=== PATIENT | male | born 1950 | race Caucasian/White ===

== ENCOUNTER 2017-06-17 10:01 | Day surgery (SDC) | payer MEDICARE, OTHER ==
--- NOTE | 2017-06-17 07:32 | PCM.PREANE ---
Preanesthetic Assessment - Anesthesia/Transfusion/Family Hx Anesthesia History: Prior Anesthesia Without Reaction Family History of Anesthesia Reaction: No Transfusion History: No Prior Transfusion(s) - Review of Systems General: No Symptoms Pulmonary: Shortness of Breath (unchanged. there for years) Cardiovascular: No Symptoms Gastrointestinal: No Symptoms Neurological: No Symptoms, Other (stroke maybe a year ago-) Other: Reports: None - Physical Assessment NPO Status Date: 06/16/17 NPO Status Time: 22:15 Pulse: 57 O2 Sat by Pulse Oximetry: 100 Respiratory Rate: 16 Blood Pressure: 159/67 Temperature: 97.2 F Height: 6 ft Weight: 94.347 kg ASA Class: 3 Mental Status: Alert & Oriented x3 Airway Class: Mallampati = 1 Dentition: Reports: Dentures (top) Thyro-Mental Finger Breadths: 3 Mouth Opening Finger Breadths: 3 ROM/Head Extension: Full Lungs: Clear to Auscultation, Normal Respiratory Effort Cardiovascular: Regular Rate, Regular Rhythm - Allergies Allergies/Adverse Reactions: Allergies Allergy/AdvReac Type Severity Reaction Status Date / Time beta blockers AdvReac Syncope Uncoded 06/16/17 16:02 - Blood Blood Available: No - Anesthesia Plan Beta Leonard: Metoprolol Med Last Dose Date: 06/17/17 Med Last Dose Time: 05:15 - Acknowledgements Anesthesia Type Planned: MAC Pt an Appropriate Candidate for the Planned Anesthesia: Yes Alternatives and Risks of Anesthesia Discussed w Pt/Guardian: Yes Pt/Guardian Understands and Agrees with Anesthesia Plan: Yes PreAnesthesia Questionnaire HEENT History: Reports: Allergic Rhinitis, Impaired Vision Other HEENT History: wears glasses Cardiovascular History: Reports: CAD, High Cholesterol, Hypertension, [place], Stents Other Cardiovascular History: bypass x3 March 2009 Respiratory History: Reports: SOB Gastrointestinal History: Reports: Cholelithiasis, GERD Genitourinary History: Reports: None VAT PACKER History: Reports: None Musculoskeletal History: Reports: Other (See Below) Other Musculoskeletal History: chronic joint pain Neurological History: Reports: Seizure, Other (See Below) Other Neuro History: epilepsy, black out episodes from [id number] diagnosed as petit mal seizures Psychiatric History: Reports: None, Anxiety Endocrine/Metabolic History: Reports: Hypothyroidism, Osteoporosis Hematologic History: Reports: None, Other (See Below) Other Hematologic History: jaundice history-resolved Immunologic History: Reports: None Oncologic (Cancer) History: Reports: None Dermatologic History: Reports: Other (See Below) Other Dermatologic History: cyst on face - Past Surgical History Head Surgeries/Procedures: Reports: None HEENT Surgical History: Reports: None Cardiovascular Surgical History: Reports: Coronary Artery Bypass Other Cardiovascular Surgeries/Procedures: triple CABG in 2008 GI Surgical History: Reports: None, Cholecystectomy Female Surgical History: Reports: None Male Surgical History: Reports: None Neurological Surgical History: Reports: None Musculoskeletal Surgical History: Reports: None - SUBSTANCE USE Smoking Status *Q: Never Smoker Second Hand Smoke Exposure: No Days Per Week of Alcohol Use: 0 Number of Drinks Per Day: 0 Total Drinks Per Week: 0 Recreational Drug Use History: No - HOME MEDS Home Medications: Home Meds Clopidogrel [Plavix] 75 mg PO Q48H 05/07/16 [History] Diltiazem [Cardizem CD] 240 mg PO BEDTIME 05/07/16 [History] Enalapril Maleate 10 mg PO BID 05/07/16 [History] Multivitamin [Multivitamins] 1 tab PO DAILY 05/07/16 [History] Nitroglycerin [Nitrostat] 0.4 mg SL ASDIRECTED PRN 05/07/16 [History] Pantoprazole [ProTONIX] 40 mg PO DAILY 05/07/16 [History] atorvaSTATin [Lipitor] 80 mg PO DAILY 05/07/16 [History] Ascorbic Acid [Vitamin C] 1,000 mg PO DAILY 06/16/17 [History] Isosorbide Mononitrate [Imdur] 30 mg PO DAILY 06/16/17 [History] Ubidecarenone [Coq-10] 100 mg PO DAILY 06/16/17 [History] lamoTRIgine [Lamotrigine] 100 mg PO BID 06/16/17 [History] - CURRENT (IN HOUSE) MEDS Current Meds: Current Medications Lactated Ringer's (Ringers, Lactated) 1,000 mls @ 125 mls/hr IV ASDIRECTED CHEIRE Stop: 06/17/17 23:00 Lidocaine/Sodium Bicarbonate (Buffered Lidocaine 1% In Ns 8.4%) 0.25 ml .XX ONETIME PRN PRN Reason: Prior to IV Start Stop: 06/17/17 18:00 Sodium Chloride (Saline Flush) 10 ml FLUSH ASDIRECTED PRN PRN Reason: Keep Vein Open Stop: 06/17/17 18:00
[~2017-06-17 10:01] MED LIST: Lactated Ringers 1,000 ML IV SCH; Lidocaine 1%/Sod Bicarbonate in NS 8.4% 1 ML Syringe PRN; Sodium Chloride 0.9% 10 ML Syringe FLUSH PRN
--- NOTE | 2017-06-17 11:08 | PCM.PREANE ---
Preanesthetic Assessment - Anesthesia/Transfusion/Family Hx Anesthesia History: Prior Anesthesia Without Reaction Family History of Anesthesia Reaction: No Transfusion History: No Prior Transfusion(s) - Review of Systems General: No Symptoms Pulmonary: No Symptoms Cardiovascular: No Symptoms Gastrointestinal: No Symptoms Neurological: Seizure (jan 12, 2017 last one) Other: Reports: Easy Bruising - Physical Assessment NPO Status Date: 06/16/17 NPO Status Time: 19:45 O2 Sat by Pulse Oximetry: 98 Respiratory Rate: 16 Vital Signs: Last Vital Signs Temp 97.5 F 06/17/17 10:15 Pulse 71 06/17/17 10:15 Resp 16 06/17/17 10:15 BP 151/65 H 06/17/17 10:15 Pulse Ox 98 06/17/17 10:15 Height: 6 ft Weight: 90.718 kg ASA Class: 3 Mental Status: Alert & Oriented x3 Airway Class: Mallampati = 1 Dentition: Reports: Normal Dentition, Broken Tooth/Teeth, Caries Thyro-Mental Finger Breadths: 3 Mouth Opening Finger Breadths: 3 ROM/Head Extension: Full Lungs: Clear to Auscultation, Normal Respiratory Effort Cardiovascular: Regular Rate, Regular Rhythm - Allergies Allergies/Adverse Reactions: Allergies Allergy/AdvReac Type Severity Reaction Status Date / Time beta blockers AdvReac Syncope Uncoded 06/16/17 16:02 - Blood Blood Available: No - Acknowledgements Anesthesia Type Planned: MAC Pt an Appropriate Candidate for the Planned Anesthesia: Yes Alternatives and Risks of Anesthesia Discussed w Pt/Guardian: Yes Pt/Guardian Understands and Agrees with Anesthesia Plan: Yes PreAnesthesia Questionnaire HEENT History: Reports: Allergic Rhinitis, Impaired Vision Other HEENT History: wears glasses Cardiovascular History: Reports: Bypass, CAD, High Cholesterol, Hypertension, [place] , Other (See Below) (gets chesst pain if he exerts himself after he eats) Other Cardiovascular History: bypass x3 March 2009 Respiratory History: Reports: SOB Gastrointestinal History: Reports: Cholelithiasis, GERD Genitourinary History: Reports: None LEATHER STITCHER History: Reports: None Musculoskeletal History: Reports: Other (See Below) Other Musculoskeletal History: chronic joint pain Neurological History: Reports: Seizure, Other (See Below) Other Neuro History: epilepsy, black out episodes from [id number] diagnosed as petit mal seizures Psychiatric History: Reports: None, Anxiety Endocrine/Metabolic History: Reports: Hypothyroidism, Osteoporosis Hematologic History: Reports: None, Other (See Below) Other Hematologic History: jaundice history-resolved Immunologic History: Reports: None Oncologic (Cancer) History: Reports: None Dermatologic History: Reports: Other (See Below) Other Dermatologic History: cyst on face - Past Surgical History Head Surgeries/Procedures: Reports: None HEENT Surgical History: Reports: None Cardiovascular Surgical History: Reports: Coronary Artery Bypass Other Cardiovascular Surgeries/Procedures: triple CABG in 2008 GI Surgical History: Reports: None, Cholecystectomy Female Surgical History: Reports: None Male Surgical History: Reports: None Neurological Surgical History: Reports: None Musculoskeletal Surgical History: Reports: None - SUBSTANCE USE Smoking Status *Q: Former Smoker (quit 1979) Tobacco Use Within Last Twelve Months: No Second Hand Smoke Exposure: No Days Per Week of Alcohol Use: 0 Number of Drinks Per Day: 0 Total Drinks Per Week: 0 Recreational Drug Use History: No - HOME MEDS Home Medications: Home Meds Clopidogrel [Plavix] 75 mg PO Q48H 05/07/16 [History] Diltiazem [Cardizem CD] 240 mg PO BEDTIME 05/07/16 [History] Enalapril Maleate 10 mg PO BID 05/07/16 [History] Multivitamin [Multivitamins] 1 tab PO DAILY 05/07/16 [History] Nitroglycerin [Nitrostat] 0.4 mg SL ASDIRECTED PRN 05/07/16 [History] Pantoprazole [ProTONIX] 40 mg PO DAILY 05/07/16 [History] atorvaSTATin [Lipitor] 80 mg PO DAILY 05/07/16 [History] Ascorbic Acid [Vitamin C] 1,000 mg PO DAILY 06/16/17 [History] Isosorbide Mononitrate [Imdur] 30 mg PO DAILY 06/16/17 [History] Ubidecarenone [Coq-10] 100 mg PO DAILY 06/16/17 [History] lamoTRIgine [Lamotrigine] 100 mg PO BID 06/16/17 [History] - CURRENT (IN HOUSE) MEDS Current Meds: Current Medications Lactated Ringer's (Ringers, Lactated) 1,000 mls @ 125 mls/hr IV ASDIRECTED CHERIE Stop: 06/17/17 23:00 Last Admin: 06/17/17 10:38 Dose: 125 mls/hr Lidocaine/Sodium Bicarbonate (Buffered Lidocaine 1% In Ns 8.4%) 0.25 ml .XX ONETIME PRN PRN Reason: Prior to IV Start Stop: 06/17/17 18:00 Last Admin: 06/17/17 10:38 Dose: 0.25 ml Sodium Chloride (Saline Flush) 10 ml FLUSH ASDIRECTED PRN PRN Reason: Keep Vein Open Stop: 06/17/17 18:00 Discontinued Medications Fentanyl (Sublimaze) Confirm Administered Dose 100 mcg .ROUTE .STK-MED ONE Stop: 06/17/17 11:17 Lidocaine HCl (Xylocaine-Mpf 1%) Confirm Administered Dose 4 mls @ as directed .ROUTE .STK-MED ONE Stop: 06/17/17 11:17 Propofol (Diprivan 20 Ml) Confirm Administered Dose 200 mg .ROUTE .STK-MED ONE Stop: 06/17/17 11:17
[2017-06-17] MEDS ORDERED: Lidocaine 1% 4 ML ONE (11:16)
[2017-06-17] MEDS ORDERED: Propofol 200 MG/20 ML SDV ONE (11:16)
[2017-06-17] MEDS ORDERED: fentaNYL 100 MCG/2 ML SDV ONE (11:16)
[2017-06-17] MEDS ORDERED: Simethicone Drops 40 MG/0.6 ML 30 ML Bottle ONE (11:20)
--- NOTE | 2017-06-17 11:48 | PCM.OPNOTE ---
- General Post-Op/Procedure Note Date of Surgery/Procedure: 06/17/17 Operative Procedure(s): colonoscopy to cecum Pre Op Diagnosis: occult positive stools Post-Op Diagnosis: Same Anesthesia Technique: MAC Primary Surgeon: Jason Hough EBL in mLs: 0 Complications: None Condition: Good
--- NOTE | 2017-06-17 11:51 | PCM48HPAN ---
Post Anesthesia Note - EVALUATION WITHIN 48HRS OF ANESTHETIC Vital Signs in Normal Range: Yes Patient Participated in Evaluation: Yes Respiratory Function Stable: Yes Airway Patent: Yes Cardiovascular Function Stable: Yes Hydration Status Stable: Yes Pain Control Satisfactory: Yes Nausea and Vomiting Control Satisfactory: Yes Mental Status Recovered: Yes
[2017-06-17 11:54] VITALS: BP 171/75
--- NOTE | 2017-06-18 07:31 | OR ---
DATE OF OPERATION: 06/17/2017 SURGEON: Jason Hough MD PREOPERATIVE DIAGNOSIS: Occult-positive stools. POSTOPERATIVE DIAGNOSIS: Occult-positive stools. OPERATION PERFORMED: Colonoscopy to cecum. FINDINGS: Occasional diverticulum, descending and sigmoid colon; internal hemorrhoids are the likely source of his positive stools. There is no angiodysplasias, neoplasias, large tumor masses, or ulcerations. DESCRIPTION OF PROCEDURE: The patient was taken to the endoscopy room, connected to monitoring equipment, given IV sedation, and placed in left lateral position. The perianal area was inspected and was normal. Rectal exam showed good sphincter tone. A video Olympus colonoscope was introduced into the rectum and threaded up without problem to the cecum, where the appendicular orifice and ileocecal valve were noted. Prep was excellent throughout the colon. [place]are[place] cleansing score grade A, and the scope was slowly withdrawn showing the cecum, ascending colon, transverse colon, descending colon, sigmoid colon, and rectum. Retroflexed view was done. Findings were as noted above. The patient tolerated the procedure and will be followed up as needed in the clinic. ANESTHESIA: ESTIMATED BLOOD LOSS: MMODAL /[id number]
== END 2017-06-17 12:30 | disposition home health service (06) ==
LOC: JD.SDS 10:01
PROVIDERS: ATTEND Surgery
DX: K57.30 Diverticulosis of large intestine without perforation or abscess without bleeding (principal); K64.8 Other hemorrhoids; I25.10 Atherosclerotic heart disease of native coronary artery without angina pectoris; I10 Essential (primary) hypertension; E03.9 Hypothyroidism, unspecified; Z95.1 Presence of aortocoronary bypass graft; Z90.49 Acquired absence of other specified parts of digestive tract; Z98.890 Other specified postprocedural states; E78.00 Pure hypercholesterolemia, unspecified; Z79.899 Other long term (current) drug therapy; Z88.8 Allergy status to other drugs, medicaments and biological substances; Z87.891 Personal history of nicotine dependence
CPT/HCPCS: 45378; A9270; J3010; J7120; 00810; J2704

== ENCOUNTER → 2019-10-17 | Day surgery (SDC) | payer MEDICARE, OTHER ==
[~2019-10-17] MED LIST changes: +Lidocaine 1% 4 ML ONE; +Lidocaine 1%/Sod Bicarbonate in NS 8.4% 1 ML Syringe IDERM PRN; -Lidocaine 1%/Sod Bicarbonate in NS 8.4% 1 ML Syringe PRN; +Propofol 200 MG/20 ML SDV ONE; +fentaNYL 100 MCG/2 ML SDV ONE
--- NOTE | 2019-10-17 08:00 | PCM.PREANE ---
Preanesthetic Assessment - Anesthesia/Transfusion/Family Hx Anesthesia History: Prior Anesthesia Without Reaction Family History of Anesthesia Reaction: No Transfusion History: No Prior Transfusion(s) - Review of Systems General: No Symptoms Pulmonary: Shortness of Breath (Associated with eating. ) Cardiovascular: No Symptoms Gastrointestinal: No Symptoms Neurological: Seizure (Has not had a seizure since 2015. ) Other: Reports: Easy Bleeding, Easy Bruising (Anticoagulated. Plavix last dose 10/11/2019.) - Physical Assessment NPO Status Date: 10/16/19 NPO Status Time: 20:30 Vital Signs: Last Vital Signs Temp 36.6 C 10/17/19 07:15 Pulse 77 10/17/19 07:15 Resp 18 10/17/19 07:15 BP 152/79 H 10/17/19 07:24 Pulse Ox 93 L 10/17/19 07:15 Height: 1.83 m Weight: 90.265 kg ASA Class: 3 Mental Status: Alert & Oriented x3 Airway Class: Mallampati = 2 Dentition: Reports: Normal Dentition Thyro-Mental Finger Breadths: 3 Mouth Opening Finger Breadths: 3 ROM/Head Extension: Full Lungs: Clear to Auscultation, Normal Respiratory Effort Cardiovascular: Regular Rate, Regular Rhythm - Allergies Allergies/Adverse Reactions: Allergies Allergy/AdvReac Type Severity Reaction Status Date / Time Alpha 2 Adrenergic Agonist Allergy Dizziness Verified 10/17/19 07:50 beta blockers AdvReac Syncope Uncoded 10/16/19 15:48 - Acknowledgements Anesthesia Type Planned: MAC Pt an Appropriate Candidate for the Planned Anesthesia: Yes Alternatives and Risks of Anesthesia Discussed w Pt/Guardian: Yes Pt/Guardian Understands and Agrees with Anesthesia Plan: Yes PreAnesthesia Questionnaire HEENT History: Reports: Allergic Rhinitis, Hard of Hearing, Impaired Vision Other HEENT History: wears glasses Cardiovascular History: Reports: Bypass, CAD, High Cholesterol, Hypertension, [place] , Other (See Below) Other Cardiovascular History: bypass x3 March 2009, carotid atherosclerosis, angina, chest pain Respiratory History: Reports: SOB Gastrointestinal History: Reports: Cholelithiasis, GERD, Other (See Below) Other Gastrointestinal History: gastritis, duodenitis, abdominal pain Genitourinary History: Reports: None SILVERLIGHT DEVELOPER History: Reports: None Musculoskeletal History: Reports: Other (See Below) Other Musculoskeletal History: chronic joint pain Neurological History: Reports: Seizure, Other (See Below) Other Neuro History: epilepsy, black out episodes from [id number] diagnosed as petit mal seizures Psychiatric History: Reports: None, Anxiety Endocrine/Metabolic History: Reports: Hypothyroidism, Osteoporosis Hematologic History: Reports: None, Other (See Below) Other Hematologic History: jaundice history-resolved Immunologic History: Reports: None Oncologic (Cancer) History: Reports: None Dermatologic History: Reports: Other (See Below) Other Dermatologic History: cyst on face - Past Surgical History Head Surgeries/Procedures: Reports: None HEENT Surgical History: Reports: None Cardiovascular Surgical History: Reports: Coronary Artery Bypass Other Cardiovascular Surgeries/Procedures: triple CABG in 2008 Respiratory Surgical History: Reports: None GI Surgical History: Reports: None, Cholecystectomy, Colonoscopy Female Surgical History: Reports: None Male Surgical History: Reports: None Endocrine Surgical History: Reports: None Neurological Surgical History: Reports: None Musculoskeletal Surgical History: Reports: None Oncologic Surgical History: Reports: None Dermatological Surgical History: Reports: None - SUBSTANCE USE Smoking Status *Q: Never Smoker Recreational Drug Use History: No - HOME MEDS Home Medications: Home Meds Clopidogrel [Plavix] 75 mg PO DAILY 05/07/16 [History] Diltiazem [Cardizem CD] 240 mg PO BEDTIME 05/07/16 [History] Enalapril Maleate 10 mg PO BID 05/07/16 [History] Multivitamin [Multivitamins] 1 tab PO DAILY 05/07/16 [History] Nitroglycerin [Nitrostat] 0.4 mg SL ASDIRECTED PRN 05/07/16 [History] atorvaSTATin [Lipitor] 80 mg PO DAILY 05/07/16 [History] Isosorbide Mononitrate [Imdur] 30 mg PO BID 06/16/17 [History] Ubidecarenone [Coq-10] 100 mg PO DAILY 06/16/17 [History] Aspirin [Halfprin] 81 mg PO DAILY 10/16/19 [History] Dutasteride 0.5 mg PO DAILY 10/16/19 [History] Polyethylene Glycol 3350 [MiraLAX] 1 dose PO DAILY PRN 10/16/19 [History] lamoTRIgine 200 mg PO Q12H 10/16/19 [History] - CURRENT (IN HOUSE) MEDS Current Meds: Current Medications Lactated Ringer's (Ringers, Lactated) 1,000 mls @ 125 mls/hr IV ASDIRECTED CHERIE Stop: 10/17/19 23:00 Lidocaine/Sodium Bicarbonate (Buffered Lidocaine 1% In Ns 8.4%) 0.25 ml IDERM ONETIME PRN PRN Reason: Prior to IV Start Stop: 10/17/19 18:00 Sodium Chloride (Saline Flush) 10 ml FLUSH ASDIRECTED PRN PRN Reason: Keep Vein Open Stop: 10/17/19 18:00 Discontinued Medications Fentanyl (Sublimaze) Confirm Administered Dose 100 mcg .ROUTE .STK-MED ONE Stop: 10/17/19 07:29 Lidocaine HCl (Xylocaine-Mpf 1%) Confirm Administered Dose 4 mls @ as directed .ROUTE .STK-MED ONE Stop: 10/17/19 07:30 Propofol (Diprivan 20 Ml) Confirm Administered Dose 400 mg .ROUTE .STK-MED ONE Stop: 10/17/19 07:29
--- NOTE | 2019-10-17 09:05 | PCM.OPNOTE ---
- General Post-Op/Procedure Note Date of Surgery/Procedure: 10/17/19 Operative Procedure(s): colonosocopy to cecum with polypectomy Pre Op Diagnosis: change in bowel habits Post-Op Diagnosis: Same Anesthesia Technique: MAC Primary Surgeon: Jason Hough EBL in mLs: 0 Complications: None Condition: Good
--- NOTE | 2019-10-17 09:15 | PCM48HPAN ---
Post Anesthesia Note - EVALUATION WITHIN 48HRS OF ANESTHETIC Vital Signs in Normal Range: Yes Patient Participated in Evaluation: Yes Respiratory Function Stable: Yes Airway Patent: Yes Cardiovascular Function Stable: Yes Hydration Status Stable: Yes Pain Control Satisfactory: Yes Nausea and Vomiting Control Satisfactory: Yes Mental Status Recovered: Yes Vital Signs: Last Vital Signs 0901 111/64 63 14 93% 97.3
[2019-10-17 10:54] VITALS: BP 132/75; PULSE 78
--- NOTE | 2019-10-17 14:11 | OR ---
DATE OF OPERATION: 10/17/2019 SURGEON: Jason Hough MD PREOPERATIVE DIAGNOSIS: Change in bowel habits. POSTOPERATIVE DIAGNOSIS: Change in bowel habits. OPERATION PERFORMED: Colonoscopy to cecum. FINDINGS: Scattered diverticulum in the sigmoid colon. One diminutive polyp at 30 cm which was removed completely by cold biopsy forceps. There was no angiodysplasias, large tumor masses, ulcerations, or notable hemorrhoids. ANESTHESIA: Procedure done under IV sedation. DESCRIPTION OF PROCEDURE: The patient was taken to the operating room, placed in a supine position, connected to monitoring equipment, given IV sedation. The patient was placed in left lateral position. Perianal area inspected, was normal. Rectal exam showed good sphincter tone. Video Olympus colonoscope was then introduced into the rectum and threaded up without problem to the cecum, where the ileocecal valve and appendicular orifice were reviewed. Prep was excellent. [place]arefield cleansing score grade A, and the scope was slowly withdrawn showing the cecum, ascending colon, transverse colon, descending colon, sigmoid colon, and rectum. Retroflexed view was done. Small diminutive polyp was noted at 30 cm, identified and removed with 2 bites of cold biopsy forceps and sent to pathology. The patient tolerated the procedures. Specimen sent to pathology in a labeled container. The patient's relatives informed of the results of the tests and we will recommend high-fiber diet and follow up with Dr. Zheng. ESTIMATED BLOOD LOSS: MMODAL /[id number]
== END | disposition home or self-care (01) ==
LOC: JD.SDS 06:39
PROVIDERS: ATTEND Surgery
DX: D12.5 Benign neoplasm of sigmoid colon (principal); K57.30 Diverticulosis of large intestine without perforation or abscess without bleeding; N40.1 Benign prostatic hyperplasia with lower urinary tract symptoms; N39.43 Post-void dribbling; I10 Essential (primary) hypertension; G40.009 Localization-related (focal) (partial) idiopathic epilepsy and epileptic syndromes with seizures of localized onset, not intractable, without status epilepticus; E78.2 Mixed hyperlipidemia; I25.10 Atherosclerotic heart disease of native coronary artery without angina pectoris; Z79.899 Other long term (current) drug therapy; Z79.02 Long term (current) use of antithrombotics/antiplatelets; Z79.82 Long term (current) use of aspirin; Z88.8 Allergy status to other drugs, medicaments and biological substances; Z95.1 Presence of aortocoronary bypass graft
CPT/HCPCS: 45380; J2001; J2704; J3010; J7120

== ENCOUNTER 2020-02-23 09:27 | Inpatient (IN) | payer MEDICARE, OTHER ==
[2020-02-23] MEDS ORDERED: Sodium Chloride 0.9% 10 ML Syringe FLUSH PRN (10:03)
[2020-02-23] MEDS ORDERED: Codeine/Promethazine 10-6.25 MG/5 ML Syrup 5 ML UD Cup PO ONE ×2 (10:05→14:16)
--- NOTE | 2020-02-23 10:48 | EDM.PDOC ---
ED HPI GENERAL MEDICAL PROBLEM - General Chief Complaint: Respiratory Problem Stated Complaint: COVID + Time Seen by Provider: 02/23/20 09:38 Source of Information: Reports: Patient, Provider History Limitations: Reports: No Limitations - History of Present Illness INITIAL COMMENTS - FREE TEXT/NARRATIVE: The patient presents with a cough and shortness of breath and he is COVID 19 positive. He says he started having symptoms about 5 days ago with a cough and shortness of breath. He went to the walk in clinic at [place] and he was tested for COVID 19. He was called today that he was positive. He told the provider that he was feeling worse with a worsening cough and shortness of breath. He was told to come in and be evaluated. He denies chest pain and fever. He has no abdominal pain, nausea or vomiting. He did have some diarrhea days ago. He has a history of CABG and CAD. He has no history of asthma or COPD. He does not smoke. Onset: Gradual Duration: Day(s): Improves with: Reports: None Worsens with: Reports: None Associated Symptoms: Reports: Cough, Shortness of Breath. Denies: Chest Pain, Fever/Chills, Headaches, Nausea/Vomiting Chest Pain Score (Numeric/FACES): 9 - Related Data Allergies Allergy/AdvReac Type Severity Reaction Status Date / Time Alpha 2 Adrenergic Agonist Allergy Dizziness Verified 02/23/20 09:38 beta blockers AdvReac Syncope Uncoded 02/23/20 09:38 Home Meds: Home Meds Clopidogrel [Plavix] 75 mg PO DAILY 05/07/16 [History] Diltiazem [Cardizem CD] 240 mg PO BEDTIME 05/07/16 [History] Enalapril Maleate 10 mg PO BID 05/07/16 [History] Multivitamin [Multivitamins] 1 tab PO DAILY 05/07/16 [History] Nitroglycerin [Nitrostat] 0.4 mg SL ASDIRECTED PRN 05/07/16 [History] atorvaSTATin [Lipitor] 80 mg PO DAILY 05/07/16 [History] Isosorbide Mononitrate [Imdur] 30 mg PO BID 06/16/17 [History] Ubidecarenone [Coq-10] 100 mg PO DAILY 06/16/17 [History] Aspirin [Halfprin] 81 mg PO DAILY 10/16/19 [History] Dutasteride 0.5 mg PO DAILY 10/16/19 [History] lamoTRIgine 250 mg PO Q12H 10/16/19 [History] polyethylene glycoL 3350 [MiraLAX] 1 dose PO DAILY PRN 10/16/19 [History] Amoxicillin/Clavulanate K [Augmentin 875-125 MG] 1 tab PO TID 02/23/20 [History] Azithromycin 250 mg PO DAILY 02/23/20 [History] Benzonatate [Tessalon Perle] 200 mg PO TID 02/23/20 [History] Docusate Sodium 100 mg PO ASDIRECTED 02/23/20 [History] levETIRAcetam [Keppra] 500 mg PO BID 02/23/20 [History] Past Medical History HEENT History: Reports: Allergic Rhinitis, Hard of Hearing, Impaired Vision Other HEENT History: wears glasses Cardiovascular History: Reports: Bypass, CAD, High Cholesterol, Hypertension, [place] , Other (See Below) Other Cardiovascular History: bypass x3 March 2009, carotid atherosclerosis, angina, chest pain Respiratory History: Reports: SOB Gastrointestinal History: Reports: Cholelithiasis, GERD, Other (See Below) Other Gastrointestinal History: gastritis, duodenitis, abdominal pain Genitourinary History: Reports: None JACKER FEEDER History: Reports: None Musculoskeletal History: Reports: Other (See Below) Other Musculoskeletal History: chronic joint pain Neurological History: Reports: Seizure, Other (See Below) Other Neuro History: epilepsy, 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 Psychiatric History: Reports: None, Anxiety Endocrine/Metabolic History: Reports: Hypothyroidism, Osteoporosis Hematologic History: Reports: None, Other (See Below) Other Hematologic History: jaundice history-resolved Immunologic History: Reports: None Oncologic (Cancer) History: Reports: None Dermatologic History: Reports: Other (See Below) Other Dermatologic History: cyst on face - Past Surgical History Head Surgeries/Procedures: Reports: None HEENT Surgical History: Reports: None Cardiovascular Surgical History: Reports: Coronary Artery Bypass Other Cardiovascular Surgeries/Procedures: triple CABG in 2008 Respiratory Surgical History: Reports: None GI Surgical History: Reports: None, Cholecystectomy, Colonoscopy Male Surgical History: Reports: None Endocrine Surgical History: Reports: None Neurological Surgical History: Reports: None Musculoskeletal Surgical History: Reports: None Oncologic Surgical History: Reports: None Dermatological Surgical History: Reports: None Social & Family History - Family History Family Medical History: Noncontributory - Tobacco Use Smoking Status *Q: Never Smoker Second Hand Smoke Exposure: No - Caffeine Use Caffeine Use: Reports: None - Recreational Drug Use Recreational Drug Use: No - Living Situation & Occupation Living situation: Reports: Occupation: Employed ED ROS GENERAL - Review of Systems Review Of Systems: See Below Constitutional: Reports: No Symptoms HEENT: Reports: No Symptoms Respiratory: Reports: Shortness of Breath, Cough Cardiovascular: Reports: No Symptoms Endocrine: Reports: No Symptoms GI/Abdominal: Reports: No Symptoms : Reports: No Symptoms Musculoskeletal: Reports: No Symptoms ED EXAM, GENERAL - Physical Exam Exam: See Below Exam Limited By: No Limitations General Appearance: Alert, No Apparent Distress Ears: Normal External Exam Nose: Normal Inspection Head: Atraumatic, Normocephalic Neck: Normal Inspection Respiratory/Chest: Decreased Breath Sounds, Rhonchi (Bases) Cardiovascular: Regular Rate, Rhythm, No Edema, No Murmur GI/Abdominal: Soft, Non-Tender, No Organomegaly, No Mass Back Exam: Normal Inspection Extremities: Normal Inspection Course - Vital Signs Last Recorded V/S: Last Vital Signs Temp 97.9 F 02/23/20 09:34 Pulse 90 02/23/20 09:34 Resp 23 H 02/23/20 09:34 BP 134/75 02/23/20 09:34 Pulse Ox 95 02/23/20 10:15 - Orders/Labs/Meds Orders: Active Orders 24 hr Category Date Time Status Cardiac Monitoring [RC] . DIRECTED Care 02/23/20 10:03 Active EKG Documentation Completion [RC] ASDIRECTED Care 02/23/20 13:05 Active Oxygen Therapy [RC] PRN Care 02/23/20 10:03 Active Peripheral IV Care [RC] . DIRECTED Care 02/23/20 10:04 Active PROCALCITONIN [REF] Stat Lab 02/23/20 10:35 Received Sodium Chloride 0.9% [Saline Flush] Med 02/23/20 10:03 Active 10 ml FLUSH ASDIRECTED PRN Peripheral IV Insertion Adult [OM.PC] Stat Oth 02/23/20 10:03 Ordered EKG 12 Lead [EK] Stat Ther 02/23/20 13:04 Ordered Medication Orders Sodium Chloride (Saline Flush) 10 ml FLUSH ASDIRECTED PRN PRN Reason: Keep Vein Open Last Admin: 02/23/20 10:41 Dose: 10 ml Labs: Laboratory Tests 02/23/20 02/23/20 02/23/20 Range/Units 10:35 10:35 10:35 WBC 5.96 (4.23-9.07) K/mm3 RBC 4.55 L (4.63-6.08) M/mm3 Hgb 13.4 L (13.7-17.5) gm/dl Hct 39.5 L (40.1-51.0) % MCV 86.8 D (79.0-92.2) fl MCH 29.5 (25.7-32.2) pg MCHC 33.9 (32.2-35.5) g/dl RDW Std Deviation 40.8 (35.1-43.9) fL Plt Count 291 (163-337) K/mm3 MPV 9.9 (9.4-12.3) fl Neut % (Auto) 74.5 H (34.0-67.9) % Lymph % (Auto) 13.6 L (21.8-53.1) % [place] % (Auto) 11.4 (5.3-12.2) % Eos % (Auto) 0 L (0.8-7.0) Baso % (Auto) 0.2 (0.1-1.2) % Neut # (Auto) 4.44 (1.78-5.38) K/mm3 Lymph # (Auto) 0.81 L (1.32-3.57) K/mm3 [place] # (Auto) 0.68 (0.30-0.82) K/mm3 Eos # (Auto) 0.00 L (0.04-0.54) K/mm3 Baso # (Auto) 0.01 (0.01-0.08) K/mm3 Sodium 136 (136-145) mEq/L Potassium 3.6 (3.5-5.1) mEq/L Chloride 100 (98-107) mEq/L Carbon Dioxide 25 (21-32) mEq/L Anion Gap 14.6 (5-15) BUN 14 (7-18) mg/dL Creatinine 0.9 (0.7-1.3) mg/dL Est Cr Clr Drug Dosing 86.22 mL/min Estimated GFR (MDRD) > 60 (>60) mL/min BUN/Creatinine Ratio 15.6 (14-18) Glucose 117 H (80-115) mg/dL Calcium 8.8 (8.5-10.1) mg/dL Ferritin 1391 H (26-388) ng/ml Total Bilirubin 1.1 H (0.2-1.0) mg/dL AST 28 (15-37) U/L ALT 37 (16-63) U/L Alkaline Phosphatase 81 (46-116) U/L Lactate Dehydrogenase 203 (85-227) U/L Troponin I (0.00-0.056) ng/mL C-Reactive Protein 8.4 H* (<1.0) mg/dL NT-Pro-B Natriuret Pep (0-125) pg/mL Total Protein 7.1 (6.4-8.2) g/dl Albumin 3.3 L (3.4-5.0) g/dl Globulin 3.8 gm/dL Albumin/Globulin Ratio 0.9 L (1-2) 02/23/20 02/23/20 Range/Units 10:35 10:35 WBC (4.23-9.07) K/mm3 RBC (4.63-6.08) M/mm3 Hgb (13.7-17.5) gm/dl Hct (40.1-51.0) % MCV (79.0-92.2) fl MCH (25.7-32.2) pg MCHC (32.2-35.5) g/dl RDW Std Deviation (35.1-43.9) fL Plt Count (163-337) K/mm3 MPV (9.4-12.3) fl Neut % (Auto) (34.0-67.9) % Lymph % (Auto) (21.8-53.1) % [place] % (Auto) (5.3-12.2) % Eos % (Auto) (0.8-7.0) Baso % (Auto) (0.1-1.2) % Neut # (Auto) (1.78-5.38) K/mm3 Lymph # (Auto) (1.32-3.57) K/mm3 [place] # (Auto) (0.30-0.82) K/mm3 Eos # (Auto) (0.04-0.54) K/mm3 Baso # (Auto) (0.01-0.08) K/mm3 Sodium (136-145) mEq/L Potassium (3.5-5.1) mEq/L Chloride (98-107) mEq/L Carbon Dioxide (21-32) mEq/L Anion Gap (5-15) BUN (7-18) mg/dL Creatinine (0.7-1.3) mg/dL Est Cr Clr Drug Dosing mL/min Estimated GFR (MDRD) (>60) mL/min BUN/Creatinine Ratio (14-18) Glucose (80-115) mg/dL Calcium (8.5-10.1) mg/dL Ferritin (26-388) ng/ml Total Bilirubin (0.2-1.0) mg/dL AST (15-37) U/L ALT (16-63) U/L Alkaline Phosphatase (46-116) U/L Lactate Dehydrogenase (85-227) U/L Troponin I < 0.017 (0.00-0.056) ng/mL C-Reactive Protein (<1.0) mg/dL NT-Pro-B Natriuret Pep 174 H (0-125) pg/mL Total Protein (6.4-8.2) g/dl Albumin (3.4-5.0) g/dl Globulin gm/dL Albumin/Globulin Ratio (1-2) Meds: Medications Generic Name Dose Route Start Last Admin Trade Name Freq PRN Reason Stop Dose Admin Sodium Chloride 10 ml 02/23/20 10:03 02/23/20 10:41 Saline Flush FLUSH 10 ml ASDIRECTED PRN Administration Keep Vein Open Discontinued Medications Generic Name Dose Route Start Last Admin Trade Name Freq PRN Reason Stop Dose Admin Hydroxychloroquine Sulfate 400 mg 02/23/20 13:03 02/23/20 14:08 Plaquenil PO 02/23/20 13:04 400 mg ONETIME ONE Administration Promethazine HCl/Codeine 5 ml 02/23/20 10:05 02/23/20 10:18 Phenergan With Codeine PO 02/23/20 10:06 5 ml ONETIME ONE Administration - Re-Assessments/Exams Free Text/Narrative Re-Assessment/Exam: 02/23/20 11:15 I ordered oxygen, IV saline lock, CXR, labs and phenergan with codeine for his cough. His CXR shows patchy increased density within the right upper perihilar region. Findings presumably due to pneumonia, either bacterial or viral in etiology. No other acute finding is seen. 02/23/20 14:10 His CXR shows patchy increased density within the right upper perihilar region. Findings presumably due to pneumonia, either bacterial or viral in etiology. No other acute finding is seen. His CBC looks good. His ferritin is elevated at 1391. His LDH is normal at 203. His troponin is negative. His CRP is elevated at 8.4. His BNP is slightly elevated at 174. He is doing good on 1L of oxygen but I feel he will need to be admitted. I called Dr Juarez and he agreed to the admission. He wanted an EKG and hydorxychloroguine. I ordered both and his EKG shows a NSR with no acute changes. QT interval is normal. Departure - Departure Time of Disposition: 14:15 Disposition: Admitted As Inpatient 67 Condition: Fair Clinical Impression: Respiratory tract infection due to COVID-19 virus, Hypoxia - Discharge Information Referrals: Kennedy Zheng MD [Primary Care Provider] - Forms: ED Department Discharge Sepsis Event Note - Evaluation Sepsis Screening Result: No Definite Risk - Focused Exam Vital Signs: Vital Signs Temp Pulse Resp BP Pulse Ox Pulse Ox 02/23/20 10:15 95 02/23/20 09:34 97.9 F 90 23 H 134/75 91 L Date Exam was Performed: 02/23/20 Time Exam was Performed: 14:10 - My Orders Last 24 Hours: My Active Orders 02/23/20 10:03 Cardiac Monitoring [RC] . DIRECTED Oxygen Therapy [RC] PRN Sodium Chloride 0.9% [Saline Flush] 10 ml FLUSH ASDIRECTED PRN Peripheral IV Insertion Adult [OM.PC] Stat 02/23/20 10:04 Peripheral IV Care [RC] . DIRECTED 02/23/20 10:35 PROCALCITONIN [REF] Stat 02/23/20 13:04 EKG 12 Lead [EK] Stat 02/23/20 13:05 EKG Documentation Completion [RC] ASDIRECTED - Assessment/Plan Last 24 Hours: My Active Orders 02/23/20 10:03 Cardiac Monitoring [RC] . DIRECTED Oxygen Therapy [RC] PRN Sodium Chloride 0.9% [Saline Flush] 10 ml FLUSH ASDIRECTED PRN Peripheral IV Insertion Adult [OM.PC] Stat 02/23/20 10:04 Peripheral IV Care [RC] . DIRECTED 02/23/20 10:35 PROCALCITONIN [REF] Stat 02/23/20 13:04 EKG 12 Lead [EK] Stat 02/23/20 13:05 EKG Documentation Completion [RC] ASDIRECTED
--- NOTE | 2020-02-23 10:51 | CR ---
Chest: Portable view of the chest was obtained. Comparison: Prior chest x-ray of 05/07/16. Heart size is normal. Tortuous thoracic aorta is seen. Patchy increased density noted within the upper right perihilar region. Left lung is clear. Moderate sized hiatal hernia is noted. Previous sternotomy for CABG. Impression: 1. Patchy increased density within the right upper perihilar region. Findings presumably due to pneumonia, either bacterial or viral in etiology. 2. No other acute finding is seen. Diagnostic code #3 Study was dictated in MDT
[2020-02-23] MEDS ORDERED: Hydroxychloroquine 200 MG Tab PO ONE ×2 (13:03→21:00)
[2020-02-23] MEDS ORDERED: Nitroglycerin 0.4 MG Tab.SL SL PRN (16:34)
[2020-02-23] MEDS ORDERED: Polyethylene Glycol 3350 Powder 17 GM Packet PO PRN (16:34)
[2020-02-23] MEDS ORDERED: Acetaminophen 325 MG Tab PO PRN (16:37)
--- NOTE | 2020-02-23 17:16 | PCM.HP.2 ---
H&P History of Present Illness - General Date of Service: 02/23/20 Admit Problem/Dx: Admission Diagnosis/Problem Admission Diagnosis/Problem Respiratory distress - History of Present Illness Initial Comments - Free Text/Narative: 69-year-old male with known positive COVID-19 who presents to the emergency room with worsening cough and shortness of breath. It was difficult to obtain a good history from him secondary to coughing. Patient was exposed to the coronavirus over 2 weeks ago. He apparently elbow bumped a person that had the coronavirus but he did not know it at the time. He did self quarantine for 2 weeks after finding out the other person was positive. Then 5 days ago he started developing a cough and shortness of breath. He was tested for COVID-19 and started 3 days ago on azithromycin. He has not taken his azithromycin today. He denies any fever or chills. He had some diarrhea several days ago. He has no history of lung disease including asthma or COPD. He is a non- smoker. He has a history of coronary artery disease with CABG, hypertension, WA , hyperlipidemia, seizure disorder, hypothyroidism, and anxiety. In the emergency room he was found to be hypoxemic with a pulse ox in the upper 80s. He was placed on 1 L and saturations went up to the low to mid 90s. CBC, electrolytes, renal function, and liver enzymes were all unremarkable. C- reactive protein was elevated 8.4 and ferritin at 1391. LDH normal at 203. Troponin less than 0.017 and a proBNP of 174. EKG showed sinus rhythm with a ventricular rate of 79 bpm. Normal QTC at 434. Left axis deviation otherwise normal. Checks x-ray showed patchy increased density within the right upper perihilar region. Findings presumably due to pneumonia, either bacterial or viral in etiology. No other acute finding is seen. First dose of hydroxychloroquine 400 mg was given in the emergency room. Chest Pain Score (Numeric/FACES): 0 - Related Data Allergies/Adverse Reactions: Allergies Allergy/AdvReac Type Severity Reaction Status Date / Time Alpha 2 Adrenergic Agonist AdvReac Dizziness Verified 02/23/20 14:49 beta blockers AdvReac Syncope Uncoded 02/23/20 09:38 Home Medications: Home Meds Clopidogrel [Plavix] 75 mg PO DAILY 05/07/16 [History] Diltiazem [Cardizem CD] 240 mg PO BEDTIME 05/07/16 [History] Enalapril Maleate 10 mg PO BID 05/07/16 [History] Multivitamin [Multivitamins] 1 tab PO DAILY 05/07/16 [History] Nitroglycerin [Nitrostat] 0.4 mg SL ASDIRECTED PRN 05/07/16 [History] atorvaSTATin [Lipitor] 80 mg PO DAILY 05/07/16 [History] Isosorbide Mononitrate [Imdur] 30 mg PO BID 06/16/17 [History] Ubidecarenone [Coq-10] 100 mg PO DAILY 06/16/17 [History] Aspirin [Halfprin] 81 mg PO DAILY 10/16/19 [History] Dutasteride 0.5 mg PO DAILY 10/16/19 [History] lamoTRIgine 250 mg PO Q12H 10/16/19 [History] polyethylene glycoL 3350 [MiraLAX] 1 dose PO DAILY PRN 10/16/19 [History] Amoxicillin/Clavulanate K [Augmentin 875-125 MG] 1 tab PO TID 02/23/20 [History] Azithromycin 250 mg PO DAILY 02/23/20 [History] Benzonatate [Tessalon Perle] 200 mg PO TID 02/23/20 [History] Docusate Sodium 100 mg PO ASDIRECTED 02/23/20 [History] levETIRAcetam [Keppra] 500 mg PO BID 02/23/20 [History] Past Medical History HEENT History: Reports: Allergic Rhinitis, Hard of Hearing, Impaired Vision Other HEENT History: wears glasses Cardiovascular History: Reports: Bypass, CAD, High Cholesterol, Hypertension, [place] , Other (See Below) Other Cardiovascular History: bypass x3 March 2009, carotid atherosclerosis, angina, chest pain Respiratory History: Reports: SOB Gastrointestinal History: Reports: Cholelithiasis, GERD, Other (See Below) Other Gastrointestinal History: gastritis, duodenitis, abdominal pain Genitourinary History: Reports: None [employer] History: Reports: None Musculoskeletal History: Reports: Other (See Below) Other Musculoskeletal History: chronic joint pain Neurological History: Reports: Seizure, Other (See Below) Other Neuro History: epilepsy, 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 Psychiatric History: Reports: None, Anxiety Endocrine/Metabolic History: Reports: Hypothyroidism, Osteoporosis Hematologic History: Reports: None, Other (See Below) Other Hematologic History: jaundice history-resolved Immunologic History: Reports: None Oncologic (Cancer) History: Reports: None Dermatologic History: Reports: Other (See Below) Other Dermatologic History: cyst on face - Infectious Disease History Infectious Disease History: Reports: Novel Coronavirus - Past Surgical History Head Surgeries/Procedures: Reports: None HEENT Surgical History: Reports: None Cardiovascular Surgical History: Reports: Coronary Artery Bypass Other Cardiovascular Surgeries/Procedures: triple CABG in 2008 Respiratory Surgical History: Reports: None GI Surgical History: Reports: None, Cholecystectomy, Colonoscopy Male Surgical History: Reports: None Endocrine Surgical History: Reports: None Neurological Surgical History: Reports: None Musculoskeletal Surgical History: Reports: None Oncologic Surgical History: Reports: None Dermatological Surgical History: Reports: None Social & Family History - Family History Family Medical History: Noncontributory - Tobacco Use Smoking Status *Q: Former Smoker Used Tobacco, but Quit: Yes Month/Year Tobacco Last Used: 1979 Second Hand Smoke Exposure: No - Caffeine Use Caffeine Use: Reports: Soda - Recreational Drug Use Recreational Drug Use: No - Living Situation & Occupation Living situation: Reports: Occupation: Employed H&P Review of Systems - Review of Systems: Review Of Systems: Comprehensive ROS is negative, except as noted in HPI. Exam - Exam Exam: See Below - Vital Signs Vital Signs: Last Vital Signs Temp 98 F 02/23/20 16:08 Pulse 78 02/23/20 16:34 Resp 28 H 02/23/20 16:34 BP 141/88 H 02/23/20 16:01 Pulse Ox 95 02/23/20 16:34 Weight: 196 lb - Exam Quality Assessment: Supplemental Oxygen (1 L nasal cannula) General: Alert, Oriented, Other (Coughing throughout interview and exam making it difficult to auscultate.) HEENT: Conjunctiva Clear, EACs Clear, EOMI, Mucosa Moist & Dixon, Nares Patent Neck: Supple, Trachea Midline, 2 Lungs: Decreased Breath Sounds, Crackles. No: Normal Respiratory Effort ( Slight increased respiratory rate and effort. No use accessory muscles.) Cardiovascular: Regular Rate, Regular Rhythm GI/Abdominal Exam: Normal Bowel Sounds, Soft, Non-Tender, No Organomegaly, No Distention Extremities: Normal Inspection, Normal Range of Motion, Non-Tender, No Pedal Edema, Normal Capillary Refill Skin: Warm, Dry, Intact Neurological: Cranial Nerves Intact Neuro Extensive - Mental Status: Alert, Oriented x3, Normal Mood/Affect, Normal Cognition Neuro Extensive - Motor, Sensory, Reflexes: CN II-XII Intact Psychiatric: Alert, Normal Affect, Normal Mood - Patient Data Lab Results Last 24 hrs: Laboratory Results - last 24 hr 02/23/20 02/23/20 02/23/20 Range/Units 10:35 10:35 10:35 WBC 5.96 (4.23-9.07) K/mm3 RBC 4.55 L (4.63-6.08) M/mm3 Hgb 13.4 L (13.7-17.5) gm/dl Hct 39.5 L (40.1-51.0) % MCV 86.8 D (79.0-92.2) fl MCH 29.5 (25.7-32.2) pg MCHC 33.9 (32.2-35.5) g/dl RDW Std Deviation 40.8 (35.1-43.9) fL Plt Count 291 (163-337) K/mm3 MPV 9.9 (9.4-12.3) fl Neut % (Auto) 74.5 H (34.0-67.9) % Lymph % (Auto) 13.6 L (21.8-53.1) % Amador % (Auto) 11.4 (5.3-12.2) % Eos % (Auto) 0 L (0.8-7.0) Baso % (Auto) 0.2 (0.1-1.2) % Neut # (Auto) 4.44 (1.78-5.38) K/mm3 Lymph # (Auto) 0.81 L (1.32-3.57) K/mm3 Amador # (Auto) 0.68 (0.30-0.82) K/mm3 Eos # (Auto) 0.00 L (0.04-0.54) K/mm3 Baso # (Auto) 0.01 (0.01-0.08) K/mm3 Sodium 136 (136-145) mEq/L Potassium 3.6 (3.5-5.1) mEq/L Chloride 100 (98-107) mEq/L Carbon Dioxide 25 (21-32) mEq/L Anion Gap 14.6 (5-15) BUN 14 (7-18) mg/dL Creatinine 0.9 (0.7-1.3) mg/dL Est Cr Clr Drug Dosing 86.22 mL/min Estimated GFR (MDRD) > 60 (>60) mL/min BUN/Creatinine Ratio 15.6 (14-18) Glucose 117 H (80-115) mg/dL Calcium 8.8 (8.5-10.1) mg/dL Ferritin 1391 H (26-388) ng/ml Total Bilirubin 1.1 H (0.2-1.0) mg/dL AST 28 (15-37) U/L ALT 37 (16-63) U/L Alkaline Phosphatase 81 (46-116) U/L Lactate Dehydrogenase 203 (85-227) U/L Troponin I (0.00-0.056) ng/mL C-Reactive Protein 8.4 H* (<1.0) mg/dL NT-Pro-B Natriuret Pep (0-125) pg/mL Total Protein 7.1 (6.4-8.2) g/dl Albumin 3.3 L (3.4-5.0) g/dl Globulin 3.8 gm/dL Albumin/Globulin Ratio 0.9 L (1-2) 02/23/20 02/23/20 Range/Units 10:35 10:35 WBC (4.23-9.07) K/mm3 RBC (4.63-6.08) M/mm3 Hgb (13.7-17.5) gm/dl Hct (40.1-51.0) % MCV (79.0-92.2) fl MCH (25.7-32.2) pg MCHC (32.2-35.5) g/dl RDW Std Deviation (35.1-43.9) fL Plt Count (163-337) K/mm3 MPV (9.4-12.3) fl Neut % (Auto) (34.0-67.9) % Lymph % (Auto) (21.8-53.1) % Amador % (Auto) (5.3-12.2) % Eos % (Auto) (0.8-7.0) Baso % (Auto) (0.1-1.2) % Neut # (Auto) (1.78-5.38) K/mm3 Lymph # (Auto) (1.32-3.57) K/mm3 Amador # (Auto) (0.30-0.82) K/mm3 Eos # (Auto) (0.04-0.54) K/mm3 Baso # (Auto) (0.01-0.08) K/mm3 Sodium (136-145) mEq/L Potassium (3.5-5.1) mEq/L Chloride (98-107) mEq/L Carbon Dioxide (21-32) mEq/L Anion Gap (5-15) BUN (7-18) mg/dL Creatinine (0.7-1.3) mg/dL Est Cr Clr Drug Dosing mL/min Estimated GFR (MDRD) (>60) mL/min BUN/Creatinine Ratio (14-18) Glucose (80-115) mg/dL Calcium (8.5-10.1) mg/dL Ferritin (26-388) ng/ml Total Bilirubin (0.2-1.0) mg/dL AST (15-37) U/L ALT (16-63) U/L Alkaline Phosphatase (46-116) U/L Lactate Dehydrogenase (85-227) U/L Troponin I < 0.017 (0.00-0.056) ng/mL C-Reactive Protein (<1.0) mg/dL NT-Pro-B Natriuret Pep 174 H (0-125) pg/mL Total Protein (6.4-8.2) g/dl Albumin (3.4-5.0) g/dl Globulin gm/dL Albumin/Globulin Ratio (1-2) Result Diagrams: 02/23/20 10:35 02/23/20 10:35 Sepsis Event Note - Evaluation Sepsis Screening Result: No Definite Risk - Focused Exam Vital Signs: Vital Signs Temp Pulse Pulse Resp BP BP Pulse Ox 02/23/20 16:34 78 28 H 95 02/23/20 16:32 80 28 H 95 02/23/20 16:30 79 30 H 95 02/23/20 16:28 79 29 H 95 02/23/20 16:26 80 21 H 95 02/23/20 16:24 80 26 H 97 02/23/20 16:22 81 27 H 95 02/23/20 16:20 81 22 H 93 L 02/23/20 16:18 84 27 H 95 02/23/20 16:16 81 21 H 97 02/23/20 16:14 80 26 H 97 02/23/20 16:12 79 31 H 95 02/23/20 16:10 82 26 H 93 L 02/23/20 16:08 98 F 82 30 H 96 02/23/20 16:06 79 21 H 95 02/23/20 16:04 81 22 H 96 02/23/20 16:01 80 29 H 141/88 H 96 02/23/20 16:00 82 95 02/23/20 15:55 80 94 L 02/23/20 15:50 82 95 02/23/20 15:45 79 95 02/23/20 15:40 81 93 L 02/23/20 15:35 79 93 L 02/23/20 15:30 79 95 02/23/20 15:25 84 95 02/23/20 15:20 80 95 02/23/20 15:18 81 93 L 02/23/20 15:17 84 135/76 96 02/23/20 10:15 02/23/20 09:34 97.9 F 90 23 H 134/75 91 L Pulse Ox 02/23/20 16:34 02/23/20 16:32 02/23/20 16:30 02/23/20 16:28 02/23/20 16:26 02/23/20 16:24 02/23/20 16:22 02/23/20 16:20 02/23/20 16:18 02/23/20 16:16 02/23/20 16:14 02/23/20 16:12 02/23/20 16:10 02/23/20 16:08 02/23/20 16:06 02/23/20 16:04 02/23/20 16:01 02/23/20 16:00 02/23/20 15:55 02/23/20 15:50 02/23/20 15:45 02/23/20 15:40 02/23/20 15:35 02/23/20 15:30 02/23/20 15:25 02/23/20 15:20 02/23/20 15:18 02/23/20 15:17 02/23/20 10:15 95 02/23/20 09:34 Date Exam was Performed: 02/23/20 Time Exam was Performed: 18:51 - Problem List (1) Hypoxia SNOMED Code(s): 083810035 ICD Code: R09.02 - HYPOXEMIA Status: Acute Current Visit: Yes (2) Respiratory tract infection due to COVID-19 virus SNOMED Code(s): 674254003 ICD Code: U07.1 - COVID-19; J98.8 - OTHER SPECIFIED RESPIRATORY DISORDERS Status: Acute Current Visit: Yes Problem List Initiated/Reviewed/Updated: Yes Orders Last 24hrs: Active Orders 24 hr Category Date Time Status Patient Status [ADT] Routine ADT 02/23/20 16:33 Ordered Cardiac Monitoring [RC] . DIRECTED Care 02/23/20 10:03 Active Cardiac Monitoring [RC] . DIRECTED Care 02/23/20 16:33 Ordered EKG Documentation Completion [RC] ASDIRECTED Care 02/23/20 13:05 Active Oxygen Therapy [RC] PRN Care 02/23/20 10:03 Active Peripheral IV Care [RC] . DIRECTED Care 02/23/20 10:04 Active Up With Assistance [RC] ASDIRECTED Care 02/23/20 16:37 Ordered VTE/DVT Education [RC] PER UNIT ROUTINE Care 02/23/20 16:37 Ordered Vital Signs [RC] ASDIRECTED Care 02/23/20 16:37 Ordered Heart Healthy Diet [DIET] Diet 02/23/20 Dinner Active C-REACTIVE PROTEIN [CHEM] AM Lab 02/24/20 05:11 Ordered C-REACTIVE PROTEIN [CHEM] AM Lab 02/25/20 05:11 Ordered C-REACTIVE PROTEIN [CHEM] AM Lab 02/26/20 05:11 Ordered C-REACTIVE PROTEIN [CHEM] AM Lab 02/27/20 05:11 Ordered C-REACTIVE PROTEIN [CHEM] AM Lab 02/28/20 05:11 Ordered C-REACTIVE PROTEIN [CHEM] AM Lab 02/29/20 05:11 Ordered CBC WITH AUTO DIFF [HEME] AM Lab 02/24/20 05:11 Ordered COMPREHENSIVE METABOLIC PN,CMP [CHEM] AM Lab 02/24/20 05:11 Ordered COMPREHENSIVE METABOLIC PN,CMP [CHEM] AM Lab 02/25/20 05:11 Ordered COMPREHENSIVE METABOLIC PN,CMP [CHEM] AM Lab 02/26/20 05:11 Ordered COMPREHENSIVE METABOLIC PN,CMP [CHEM] AM Lab 02/27/20 05:11 Ordered COMPREHENSIVE METABOLIC PN,CMP [CHEM] AM Lab 02/28/20 05:11 Ordered COMPREHENSIVE METABOLIC PN,CMP [CHEM] AM Lab 02/29/20 05:11 Ordered D-DIMER QUANTITATIVE [COAG] AM Lab 02/24/20 05:11 Ordered D-DIMER QUANTITATIVE [COAG] AM Lab 02/25/20 05:11 Ordered D-DIMER QUANTITATIVE [COAG] AM Lab 02/26/20 05:11 Ordered D-DIMER QUANTITATIVE [COAG] AM Lab 02/27/20 05:11 Ordered D-DIMER QUANTITATIVE [COAG] AM Lab 02/28/20 05:11 Ordered D-DIMER QUANTITATIVE [COAG] AM Lab 02/29/20 05:11 Ordered D-DIMER QUANTITATIVE [COAG] Routine Lab 02/23/20 16:42 Ordered FERRITIN [CHEM] AM Lab 02/24/20 05:11 Ordered FERRITIN [CHEM] AM Lab 02/25/20 05:11 Ordered FERRITIN [CHEM] AM Lab 02/26/20 05:11 Ordered FERRITIN [CHEM] AM Lab 02/27/20 05:11 Ordered FERRITIN [CHEM] AM Lab 02/28/20 05:11 Ordered FERRITIN [CHEM] AM Lab 02/29/20 05:11 Ordered LACTATE DEHYDROGENASE,LDH [CHEM] AM Lab 02/24/20 05:11 Ordered LACTATE DEHYDROGENASE,LDH [CHEM] AM Lab 02/25/20 05:11 Ordered LACTATE DEHYDROGENASE,LDH [CHEM] AM Lab 02/26/20 05:11 Ordered LACTATE DEHYDROGENASE,LDH [CHEM] AM Lab 02/27/20 05:11 Ordered LACTATE DEHYDROGENASE,LDH [CHEM] AM Lab 02/28/20 05:11 Ordered LACTATE DEHYDROGENASE,LDH [CHEM] AM Lab 02/29/20 05:11 Ordered MAGNESIUM [CHEM] AM Lab 02/24/20 05:11 Ordered MAGNESIUM [CHEM] AM Lab 02/25/20 05:11 Ordered MAGNESIUM [CHEM] AM Lab 02/26/20 05:11 Ordered MAGNESIUM [CHEM] AM Lab 02/27/20 05:11 Ordered MAGNESIUM [CHEM] AM Lab 02/28/20 05:11 Ordered MAGNESIUM [CHEM] AM Lab 02/29/20 05:11 Ordered PROCALCITONIN [REF] Stat Lab 02/23/20 10:35 Received Acetaminophen [Tylenol] Med 04/10/20 16:37 Ordered 650 mg PO Q4H PRN Aspirin [Halfprin] Med 02/24/20 09:00 Ordered 81 mg PO DAILY Azithromycin [Zithromax] 250 mg Med 02/23/20 16:45 Ordered Sodium Chloride 0.9% [Normal Saline] 250 ml IV Q24H Benzonatate [Tessalon Perles] Med 02/23/20 21:00 Ordered 200 mg PO TID Clopidogrel [Plavix] Med 02/24/20 09:00 Ordered 75 mg PO DAILY Diltiazem [Cardizem CD] Med 02/23/20 21:00 Ordered 240 mg PO BEDTIME Docusate Sodium [Colace] Med 02/23/20 16:45 Ordered 100 mg PO ASDIRECTED Dutasteride Med 02/24/20 09:00 Ordered 0.5 mg PO DAILY Enalapril Maleate Med 02/23/20 21:00 Ordered 10 mg PO BID Enoxaparin [Lovenox] Med 02/24/20 09:00 Ordered 40 mg SUBCUT DAILY Hydroxychloroquine [Plaquenil] Med 02/23/20 21:00 Once 400 mg PO ONETIME ONE Hydroxychloroquine [Plaquenil] Med 02/24/20 12:00 Ordered 400 mg PO Q24H Isosorbide Mononitrate [Imdur] Med 02/23/20 21:00 Ordered 30 mg PO BID Nitroglycerin [Nitrostat] Med 02/23/20 16:34 Ordered 0.4 mg SL ASDIRECTED PRN Sodium Chloride 0.9% [Saline Flush] Med 02/23/20 10:03 Active 10 ml FLUSH ASDIRECTED PRN atorvaSTATin Med 02/24/20 09:00 Ordered 80 mg PO DAILY lamoTRIgine [lamoTRIgine] Med 02/23/20 16:45 Ordered 250 mg PO Q12H levETIRAcetam [Keppra] Med 02/23/20 21:00 Ordered 500 mg PO BID polyethylene glycoL 3350 [MiraLAX] Med 02/23/20 16:34 Ordered 1 dose PO DAILY PRN Peripheral IV Insertion Adult [OM.PC] Stat Oth 02/23/20 10:03 Ordered Resuscitation Status Routine Resus Stat 02/23/20 16:37 Ordered EKG 12 Lead [EK] Stat Ther 02/23/20 13:04 Ordered Medication Orders Acetaminophen (Tylenol) 650 mg PO Q4H PRN PRN Reason: Pain (Mild 1-3)/fever Aspirin (Halfprin) 81 mg PO DAILY [facility] Benzonatate (Tessalon Perles) 200 mg PO TID [facility] Clopidogrel Bisulfate (Plavix) 75 mg PO Q48H [facility] Diltiazem HCl (Dilacor Xr) 240 mg PO BEDTIME [facility] Docusate Sodium (Colace) 100 mg PO ASDIRECTED [facility] Enalapril Maleate (Vasotec) 10 mg PO BID [facility] Enoxaparin Sodium (Lovenox) 40 mg SUBCUT DAILY [facility] Finasteride (Proscar) 5 mg PO DAILY [facility] Hydroxychloroquine Sulfate (Plaquenil) 400 mg PO Q24H [facility] Hydroxychloroquine Sulfate (Plaquenil) 400 mg PO ONETIME ONE Stop: 02/23/20 21:01 Azithromycin 250 mg/ Sodium (Chloride) 250 mls @ 250 mls/hr IV Q24H [facility] Stop: 02/26/20 17:01 Isosorbide Mononitrate (Imdur) 30 mg PO BID [facility] Lamotrigine (Lamotrigine) 250 mg PO Q12H [facility] Levetiracetam (Keppra) 500 mg PO BID [facility] Nitroglycerin (Nitrostat) 0.4 mg SL ASDIRECTED PRN PRN Reason: Chest Pain Polyethylene Glycol (Miralax) 17 gm PO DAILY PRN PRN Reason: Constipation Rosuvastatin Calcium (Crestor) 20 mg PO DAILY [facility] Sodium Chloride (Saline Flush) 10 ml FLUSH ASDIRECTED PRN PRN Reason: Keep Vein Open Last Admin: 02/23/20 10:41 Dose: 10 ml Assessment/Plan Comment:: Assessment 69-year-old male with positive COVID-19 with hypoxemia Right upper lobe pneumonia secondary to COVID-19 * Patient's initial response to 1 L of O2 brought his oxygenation to 95%. A few hours later his oxygenation however he dropped to 92%. * Chest x-ray is positive for patchy right upper lobe infiltrate within the perihilar region. * Patient has a history of heart disease a known risk factor for severe disease from COVID-19 * WBC 5.96 * Ferritin 1391, C-reactive protein 8.4, LDH 203 * Received first dose of hydroxychloroquine 400 mg in the emergency room * Has been on 3 days of azithromycin per patient Coronary artery disease * History of three-vessel bypass and WA * Home meds include isosorbide mononitrate, clopidogrel, nitroglycerin as needed * No current chest pain * Troponin less than 0.017 * Aspirin 81 mg daily * Allergy to beta-blockers Hypertension * Blood pressure controlled: 134/75 * Home medications: Diltiazem CD 240 mg at bedtime, enalapril 10 mg twice daily Seizure disorder * History of petit mall seizures * Home medication Keppra 500 mg twice daily, lamotrigine 250 mg twice daily History of hyperlipidemia and anxiety. Plan * Admit to the ICU for close observation * FiO2 to keep SPO2 above 92% * Utilize escalation of oxygen therapy algorithm in COVID-19. Start with low flow oxygen 1 to 6 L nasal cannula without humidification. We will then increase to high flow nasal cannula with a max of 30 L flow at 50-100% oxygen. If oxygenation is still not adequate may consider noninvasive ventilation versus early intubation. * Continue full course of hydroxychloroquine 800 mg in the first day then 400 mg for 4 days. * Finished course of azithromycin. * Avoid nebulizers and steroids. * Continue home medications * Encouraged patient to self prone. * Avoid aggressive fluid administration. * Monitor CBC, CMP, magnesium, d-dimer, ferritin, LDH, C-reactive protein * VTE prophylaxis with Lovenox * CODE STATUS: Full code
[2020-02-23] MEDS: Azithromycin 250 MG in Sodium Chloride 0.9% 250 ML IV SCH (17:39)
[2020-02-23] MEDS: Benzonatate 100 MG Cap PO SCH (20:05)
[2020-02-23] MEDS: lamoTRIgine 100 MG Tab PO SCH (20:07)
[2020-02-23] MEDS: levETIRAcetam 500 MG Tab PO SCH (20:08)
[2020-02-23] MEDS: Enalapril 5 MG Tab PO SCH (20:10)
[2020-02-23] MEDS: Isosorbide Mononitrate 30 MG Tab.ER PO SCH (20:16)
[2020-02-23] MEDS: Diltiazem 240 MG Cap.ER PO SCH (20:22)
[2020-02-23] MEDS: Codeine/Promethazine 10-6.25 MG/5 ML Syrup 5 ML UD Cup PO PRN (22:44)
[2020-02-24] MEDS: Finasteride 5 MG Tab PO SCH (08:50)
[2020-02-24] MEDS: Isosorbide Mononitrate 30 MG Tab.ER PO SCH ×2 (08:51→20:30)
[2020-02-24] MEDS: Aspirin 81 MG Tab.EC PO SCH (08:51)
[2020-02-24] MEDS: Docusate Sodium 100 MG Cap PO SCH ×2 (08:51→20:27)
[2020-02-24] MEDS: levETIRAcetam 500 MG Tab PO SCH ×2 (08:52→20:30)
[2020-02-24] MEDS: Enalapril 5 MG Tab PO SCH ×2 (08:54→20:26)
[2020-02-24] MEDS: Rosuvastatin 10 MG Tab PO SCH (08:54)
[2020-02-24] MEDS: Benzonatate 100 MG Cap PO SCH ×3 (08:55→20:31)
[2020-02-24] MEDS: lamoTRIgine 100 MG Tab PO SCH ×2 (08:56→20:28)
[2020-02-24] MEDS: Enoxaparin 40 MG/0.4 ML Syringe SUBCUT SCH (08:59)
[2020-02-24] MEDS: Hydroxychloroquine 200 MG Tab PO SCH (11:38)
--- NOTE | 2020-02-24 15:11 | PCM.PN ---
- General Info Date of Service: 02/24/20 Admission Dx/Problem (Free Text): Admission Diagnosis/Problem Admission Diagnosis/Problem Respiratory distress Subjective Update: Patient had a good night. He was able to be weaned completely off oxygen, but pulse ox was in the low 90s so he was placed back on 2 L. He stayed prone most of the night. Poor appetite. Functional Status: Reports: Pain Controlled - Review of Systems General: Reports: No Symptoms HEENT: Reports: No Symptoms Pulmonary: Reports: No Symptoms Cardiovascular: Reports: No Symptoms Gastrointestinal: Reports: No Symptoms - Patient Data Vitals - Most Recent: Last Vital Signs Temp 97.6 F 02/24/20 04:00 Pulse 76 02/24/20 13:15 Resp 27 H 02/24/20 13:15 BP 109/65 02/24/20 13:01 Pulse Ox 95 02/24/20 13:15 Weight - Most Recent: 195 lb 1.6 oz I&O - Last 24 Hours: Intake & Output 02/24/20 02/24/20 02/24/20 06:59 14:59 22:59 Intake Total 120 Balance 120 Lab Results Last 24 Hours: Laboratory Results - last 24 hr 02/23/20 02/23/20 02/24/20 Range/Units 10:35 19:00 05:08 WBC 5.31 (4.23-9.07) K/mm3 RBC 4.71 (4.63-6.08) M/mm3 Hgb 13.8 (13.7-17.5) gm/dl Hct 41.2 (40.1-51.0) % MCV 87.5 (79.0-92.2) fl MCH 29.3 (25.7-32.2) pg MCHC 33.5 (32.2-35.5) g/dl RDW Std Deviation 42.0 (35.1-43.9) fL Plt Count 265 (163-337) K/mm3 MPV 10.3 (9.4-12.3) fl Neut % (Auto) 64.6 (34.0-67.9) % Lymph % (Auto) 19.4 L (21.8-53.1) % [place] % (Auto) 15.4 H (5.3-12.2) % Eos % (Auto) 0 L (0.8-7.0) Baso % (Auto) 0.2 (0.1-1.2) % Neut # (Auto) 3.43 (1.78-5.38) K/mm3 Lymph # (Auto) 1.03 L (1.32-3.57) K/mm3 [place] # (Auto) 0.82 (0.30-0.82) K/mm3 Eos # (Auto) 0.00 L (0.04-0.54) K/mm3 Baso # (Auto) 0.01 (0.01-0.08) K/mm3 Manual Slide Review Abnormal smear D-Dimer, Quantitative 1.01 H (0.19-0.50) mg/L Sodium (136-145) mEq/L Potassium (3.5-5.1) mEq/L Chloride (98-107) mEq/L Carbon Dioxide (21-32) mEq/L Anion Gap (5-15) BUN (7-18) mg/dL Creatinine (0.7-1.3) mg/dL Est Cr Clr Drug Dosing mL/min Estimated GFR (MDRD) (>60) mL/min BUN/Creatinine Ratio (14-18) Glucose (80-115) mg/dL Calcium (8.5-10.1) mg/dL Magnesium (1.8-2.4) mg/dl Ferritin (26-388) ng/ml Total Bilirubin (0.2-1.0) mg/dL AST (15-37) U/L ALT (16-63) U/L Alkaline Phosphatase (46-116) U/L Lactate Dehydrogenase (85-227) U/L C-Reactive Protein (<1.0) mg/dL Total Protein (6.4-8.2) g/dl Albumin (3.4-5.0) g/dl Globulin gm/dL Albumin/Globulin Ratio (1-2) Procalcitonin <0.05 (<0.10) ng/mL 02/24/20 02/24/20 02/24/20 Range/Units 05:08 05:08 05:08 WBC (4.23-9.07) K/mm3 RBC (4.63-6.08) M/mm3 Hgb (13.7-17.5) gm/dl Hct (40.1-51.0) % MCV (79.0-92.2) fl MCH (25.7-32.2) pg MCHC (32.2-35.5) g/dl RDW Std Deviation (35.1-43.9) fL Plt Count (163-337) K/mm3 MPV (9.4-12.3) fl Neut % (Auto) (34.0-67.9) % Lymph % (Auto) (21.8-53.1) % [place] % (Auto) (5.3-12.2) % Eos % (Auto) (0.8-7.0) Baso % (Auto) (0.1-1.2) % Neut # (Auto) (1.78-5.38) K/mm3 Lymph # (Auto) (1.32-3.57) K/mm3 [place] # (Auto) (0.30-0.82) K/mm3 Eos # (Auto) (0.04-0.54) K/mm3 Baso # (Auto) (0.01-0.08) K/mm3 Manual Slide Review D-Dimer, Quantitative 1.21 H (0.19-0.50) mg/L Sodium 137 (136-145) mEq/L Potassium 3.8 (3.5-5.1) mEq/L Chloride 102 (98-107) mEq/L Carbon Dioxide 25 (21-32) mEq/L Anion Gap 13.8 (5-15) BUN 14 (7-18) mg/dL Creatinine 0.9 (0.7-1.3) mg/dL Est Cr Clr Drug Dosing 86.22 mL/min Estimated GFR (MDRD) > 60 (>60) mL/min BUN/Creatinine Ratio 15.6 (14-18) Glucose 106 (80-115) mg/dL Calcium 8.9 (8.5-10.1) mg/dL Magnesium 2.4 (1.8-2.4) mg/dl Ferritin 1711 H (26-388) ng/ml Total Bilirubin 0.8 (0.2-1.0) mg/dL AST 44 H (15-37) U/L ALT 46 (16-63) U/L Alkaline Phosphatase 78 (46-116) U/L Lactate Dehydrogenase 222 (85-227) U/L C-Reactive Protein 8.9 H* (<1.0) mg/dL Total Protein 6.7 (6.4-8.2) g/dl Albumin 3.0 L (3.4-5.0) g/dl Globulin 3.7 gm/dL Albumin/Globulin Ratio 0.8 L (1-2) Procalcitonin (<0.10) ng/mL Med Orders - Current: Current Medications Acetaminophen (Tylenol) 650 mg PO Q4H PRN PRN Reason: Pain (Mild 1-3)/fever Last Admin: 02/23/20 22:43 Dose: 650 mg Aspirin (Halfprin) 81 mg PO DAILY [facility] Last Admin: 02/24/20 08:51 Dose: 81 mg Benzonatate (Tessalon Perles) 200 mg PO TID [facility] Last Admin: 02/24/20 14:33 Dose: 200 mg Clopidogrel Bisulfate (Plavix) 75 mg PO Q48H [facility] Diltiazem HCl (Dilacor Xr) 240 mg PO BEDTIME [facility] Last Admin: 02/23/20 20:22 Dose: 240 mg Docusate Sodium (Colace) 100 mg PO BID [facility] Last Admin: 02/24/20 08:51 Dose: 100 mg Enalapril Maleate (Vasotec) 10 mg PO BID [facility] Last Admin: 02/24/20 08:54 Dose: 10 mg Enoxaparin Sodium (Lovenox) 40 mg SUBCUT DAILY [facility] Last Admin: 02/24/20 08:59 Dose: 40 mg Finasteride (Proscar) 5 mg PO DAILY [facility] Last Admin: 02/24/20 08:50 Dose: 5 mg Hydroxychloroquine Sulfate (Plaquenil) 400 mg PO Q24H [facility] Stop: 02/27/20 12:01 Last Admin: 02/24/20 11:38 Dose: 400 mg Azithromycin 250 mg/ Sodium (Chloride) 250 mls @ 250 mls/hr IV Q24H [facility] Stop: 02/26/20 17:01 Last Admin: 02/23/20 17:39 Dose: 250 mls/hr Isosorbide Mononitrate (Imdur) 30 mg PO BID [facility] Last Admin: 02/24/20 08:51 Dose: 30 mg Lamotrigine (Lamotrigine) 250 mg PO Q12H [facility] Last Admin: 02/24/20 08:56 Dose: 250 mg Levetiracetam (Keppra) 500 mg PO BID [facility] Last Admin: 02/24/20 08:52 Dose: 500 mg Nitroglycerin (Nitrostat) 0.4 mg SL ASDIRECTED PRN PRN Reason: Chest Pain Polyethylene Glycol (Miralax) 17 gm PO DAILY PRN PRN Reason: Constipation Promethazine HCl/Codeine (Phenergan With Codeine) 5 ml PO Q4H PRN PRN Reason: Cough Last Admin: 02/23/20 22:44 Dose: 5 ml Rosuvastatin Calcium (Crestor) 20 mg PO DAILY [facility] Last Admin: 02/24/20 08:54 Dose: 20 mg Sodium Chloride (Saline Flush) 10 ml FLUSH ASDIRECTED PRN PRN Reason: Keep Vein Open Last Admin: 02/23/20 10:41 Dose: 10 ml Discontinued Medications Hydroxychloroquine Sulfate (Plaquenil) 400 mg PO ONETIME ONE Stop: 02/23/20 13:04 Last Admin: 02/23/20 14:08 Dose: 400 mg Hydroxychloroquine Sulfate (Plaquenil) 400 mg PO ONETIME ONE Stop: 02/23/20 21:01 Last Admin: 02/23/20 20:06 Dose: 400 mg Promethazine HCl/Codeine (Phenergan With Codeine) 5 ml PO ONETIME ONE Stop: 02/23/20 10:06 Last Admin: 02/23/20 10:18 Dose: 5 ml Promethazine HCl/Codeine (Phenergan With Codeine) 5 ml PO ONETIME ONE Stop: 02/23/20 14:17 Last Admin: 02/23/20 14:30 Dose: 5 ml - Exam Quality Assessment: Supplemental Oxygen General: Alert, Oriented HEENT: Pupils Equal, Mucous Membr. Moist/[place] Neck: Supple Lungs: Decreased Breath Sounds, Crackles. No: Normal Respiratory Effort ( Increased respiratory rate with use of accessory muscles) Cardiovascular: Regular Rate, Regular Rhythm GI/Abdominal Exam: Normal Bowel Sounds, Soft, Non-Tender, No Organomegaly, No Distention, No Abnormal Bruit Extremities: Normal Inspection, Normal Range of Motion, Non-Tender, No Pedal Edema, Normal Capillary Refill Skin: Warm, Dry, Intact Psy/Mental Status: Alert, Normal Affect, Normal Mood Sepsis Event Note - Evaluation Sepsis Screening Result: No Definite Risk - Focused Exam Vital Signs: Vital Signs Temp Pulse Resp BP BP Pulse Ox 02/24/20 13:15 76 27 H 95 02/24/20 13:01 75 20 109/65 98 02/24/20 13:00 76 33 H 96 02/24/20 12:45 69 25 H 95 02/24/20 12:30 70 24 H 96 02/24/20 12:15 72 27 H 96 02/24/20 12:01 79 22 H 115/62 94 L 02/24/20 12:00 82 20 94 L 02/24/20 11:57 85 88 L 02/24/20 11:38 30 H 97 02/24/20 11:30 74 27 H 97 02/24/20 11:15 71 27 H 96 02/24/20 11:00 76 29 H 96 02/24/20 10:45 79 29 H 96 02/24/20 10:30 81 29 H 95 02/24/20 10:15 84 29 H 96 02/24/20 10:00 82 27 H 97 02/24/20 09:45 88 23 H 95 02/24/20 09:30 85 24 H 94 L 02/24/20 09:15 88 29 H 94 L 02/24/20 09:01 80 19 140/76 100 02/24/20 09:00 81 16 97 02/24/20 08:54 141/73 H 02/24/20 08:51 141/73 H 02/24/20 08:45 77 41 H 94 L 02/24/20 08:30 72 23 H 91 L 02/24/20 08:15 68 19 92 L 02/24/20 08:01 65 22 H 141/73 H 93 L 02/24/20 08:00 65 19 91 L 02/24/20 07:45 64 19 92 L 02/24/20 07:30 66 21 H 93 L 02/24/20 07:15 71 18 92 L 02/24/20 07:01 63 20 92 L 02/24/20 07:00 64 20 126/61 93 L 02/24/20 06:59 63 15 93 L 02/24/20 06:45 59 L 17 94 L 02/24/20 06:30 59 L 19 98 02/24/20 06:15 22 H 02/24/20 06:01 21 H 02/24/20 06:00 21 H 123/67 02/24/20 05:59 21 H 02/24/20 05:45 17 02/24/20 05:30 19 02/24/20 05:15 18 02/24/20 05:01 20 128/72 02/24/20 05:00 63 20 100 02/24/20 04:45 59 L 31 H 96 02/24/20 04:30 63 16 97 02/24/20 04:15 63 14 97 02/24/20 04:01 51 L 15 113/52 L 97 02/24/20 04:00 97.6 F 52 L 12 113/52 L 96 02/24/20 03:54 58 L 97 Date Exam was Performed: 02/24/20 Time Exam was Performed: 15:02 - Problem List & Annotations (1) Hypoxia SNOMED Code(s): 470728288 Code(s): R09.02 - HYPOXEMIA Status: Acute Current Visit: Yes (2) Respiratory tract infection due to COVID-19 virus SNOMED Code(s): 790110603 Code(s): U07.1 - COVID-19; J98.8 - OTHER SPECIFIED RESPIRATORY DISORDERS Status: Acute Current Visit: Yes - Problem List Review Problem List Initiated/Reviewed/Updated: Yes - My Orders Last 24 Hours: My Active Orders 02/23/20 16:33 Patient Status [ADT] Routine Cardiac Monitoring [RC] . DIRECTED 02/23/20 16:34 Nitroglycerin [Nitrostat] 0.4 mg SL ASDIRECTED PRN polyethylene glycoL 3350 [MiraLAX] 17 gm PO DAILY PRN 02/23/20 16:37 Up With Assistance [RC] ASDIRECTED VTE/DVT Education [RC] Vital Signs [RC] Q4HR Acetaminophen [Tylenol] 650 mg PO Q4H PRN Resuscitation Status Routine 02/23/20 17:00 Azithromycin [Zithromax] 250 mg Sodium Chloride 0.9% [Normal Saline] 250 ml IV Q24H 02/23/20 17:17 Codeine/Promethazine [Phenergan with Codeine] 5 ml PO Q4H PRN 02/23/20 20:00 lamoTRIgine 250 mg PO Q12H 02/23/20 21:00 Benzonatate [Tessalon Perles] 200 mg PO TID Diltiazem [Dilacor XR] 240 mg PO BEDTIME Enalapril [Vasotec] 10 mg PO BID Isosorbide Mononitrate [Imdur] 30 mg PO BID levETIRAcetam [Keppra] 500 mg PO BID 02/23/20 Dinner Heart Healthy Diet [DIET] 02/24/20 09:00 Aspirin [Halfprin] 81 mg PO DAILY Docusate Sodium [Colace] 100 mg PO BID Enoxaparin [Lovenox] 40 mg SUBCUT DAILY Finasteride [Proscar] 5 mg PO DAILY Rosuvastatin [Crestor] 20 mg PO DAILY 02/24/20 11:40 CULTURE SPUTUM + SMEAR [RM] Routine 02/24/20 12:00 Hydroxychloroquine [Plaquenil] 400 mg PO Q24H 02/25/20 05:11 C-REACTIVE PROTEIN [CHEM] AM COMPREHENSIVE METABOLIC PN,CMP [CHEM] AM D-DIMER QUANTITATIVE [COAG] AM FERRITIN [CHEM] AM LACTATE DEHYDROGENASE,LDH [CHEM] AM MAGNESIUM [CHEM] AM 02/25/20 09:00 Clopidogrel [Plavix] 75 mg PO Q48H 02/26/20 05:11 C-REACTIVE PROTEIN [CHEM] AM COMPREHENSIVE METABOLIC PN,CMP [CHEM] AM D-DIMER QUANTITATIVE [COAG] AM FERRITIN [CHEM] AM LACTATE DEHYDROGENASE,LDH [CHEM] AM MAGNESIUM [CHEM] AM 02/27/20 05:11 C-REACTIVE PROTEIN [CHEM] AM COMPREHENSIVE METABOLIC PN,CMP [CHEM] AM D-DIMER QUANTITATIVE [COAG] AM FERRITIN [CHEM] AM LACTATE DEHYDROGENASE,LDH [CHEM] AM MAGNESIUM [CHEM] AM 02/28/20 05:11 C-REACTIVE PROTEIN [CHEM] AM COMPREHENSIVE METABOLIC PN,CMP [CHEM] AM D-DIMER QUANTITATIVE [COAG] AM FERRITIN [CHEM] AM LACTATE DEHYDROGENASE,LDH [CHEM] AM MAGNESIUM [CHEM] AM 02/29/20 05:11 C-REACTIVE PROTEIN [CHEM] AM COMPREHENSIVE METABOLIC PN,CMP [CHEM] AM D-DIMER QUANTITATIVE [COAG] AM FERRITIN [CHEM] AM LACTATE DEHYDROGENASE,LDH [CHEM] AM MAGNESIUM [CHEM] AM - Plan Plan:: Assessment Day of admission 69-year-old male with positive COVID-19 with hypoxemia Right upper lobe pneumonia secondary to COVID-19 * Patient's initial response to 1 L of O2 brought his oxygenation to 95%. A few hours later his oxygenation however he dropped to 92%. * Chest x-ray is positive for patchy right upper lobe infiltrate within the perihilar region. * Patient has a history of heart disease a known risk factor for severe disease from COVID-19 * WBC 5.96 * Ferritin 1391, C-reactive protein 8.4, LDH 203 * Received first dose of hydroxychloroquine 400 mg in the emergency room * Has been on 3 days of azithromycin per patient Coronary artery disease * History of three-vessel bypass and [place] * Home meds include isosorbide mononitrate, clopidogrel, nitroglycerin as needed * No current chest pain * Troponin less than 0.017 * Aspirin 81 mg daily * Allergy to beta-blockers Hypertension * Blood pressure controlled: 134/75 * Home medications: Diltiazem CD 240 mg at bedtime, enalapril 10 mg twice daily Seizure disorder * History of [place] seizures * Home medication Keppra 500 mg twice daily, lamotrigine 250 mg twice daily History of hyperlipidemia and anxiety. Day 1 * No significant change in respiratory effort or rate * Ferritin 1711, C-reactive protein 8.9, LDH 222, d-dimer 1.01. All these parameters are slightly increased * Hemodynamically stable. * Continue encouraging him to prone. During the day he is resistant to proning. Plan * Admit to the ICU for close observation * FiO2 to keep SPO2 above 92% * Utilize escalation of oxygen therapy algorithm in COVID-19. Start with low flow oxygen 1 to 6 L nasal cannula without humidification. We will then increase to high flow nasal cannula with a max of 30 L flow at 50-100% oxygen. If oxygenation is still not adequate may consider noninvasive ventilation versus early intubation. * Continue full course of hydroxychloroquine 800 mg in the first day then 400 mg for 4 days. * Finished course of azithromycin. * Avoid nebulizers and steroids. * Continue home medications * Encouraged patient to self prone. * Avoid aggressive fluid administration. * Monitor CBC, CMP, magnesium, d-dimer, ferritin, LDH, C-reactive protein * VTE prophylaxis with Lovenox * CODE STATUS: Full code
[2020-02-24] MEDS: Azithromycin 250 MG in Sodium Chloride 0.9% 250 ML IV SCH (17:27)
[2020-02-24] MEDS: Diltiazem 240 MG Cap.ER PO SCH (20:27)
[2020-02-24] MEDS: Codeine/Promethazine 10-6.25 MG/5 ML Syrup 5 ML UD Cup PO PRN (20:32)
[2020-02-25] MEDS: Enoxaparin 40 MG/0.4 ML Syringe SUBCUT SCH (08:34)
[2020-02-25] MEDS: Enalapril 5 MG Tab PO SCH ×2 (08:35→20:28)
[2020-02-25] MEDS: Docusate Sodium 100 MG Cap PO SCH ×2 (08:35→20:30)
[2020-02-25] MEDS: Aspirin 81 MG Tab.EC PO SCH (08:35)
[2020-02-25] MEDS: levETIRAcetam 500 MG Tab PO SCH ×2 (08:35→20:30)
[2020-02-25] MEDS: Clopidogrel 75 MG Tab PO SCH (08:35)
[2020-02-25] MEDS: lamoTRIgine 100 MG Tab PO SCH ×2 (08:36→20:28)
[2020-02-25] MEDS: Isosorbide Mononitrate 30 MG Tab.ER PO SCH ×2 (08:36→20:29)
[2020-02-25] MEDS: Rosuvastatin 10 MG Tab PO SCH (08:36)
[2020-02-25] MEDS: Benzonatate 100 MG Cap PO SCH ×3 (08:36→20:29)
[2020-02-25] MEDS: Finasteride 5 MG Tab PO SCH (08:36)
[2020-02-25] MEDS: Hydroxychloroquine 200 MG Tab PO SCH (11:40)
--- NOTE | 2020-02-25 12:40 | PCM.PN ---
- General Info Date of Service: 02/25/20 Admission Dx/Problem (Free Text): Admission Diagnosis/Problem Admission Diagnosis/Problem Respiratory distress Subjective Update: Antwon is feeling better and less short of breath today. He spent much of the night lying prone. Functional Status: Reports: Pain Controlled - Review of Systems General: Reports: No Symptoms HEENT: Reports: No Symptoms Pulmonary: Reports: Cough Cardiovascular: Reports: No Symptoms Gastrointestinal: Reports: No Symptoms Musculoskeletal: Reports: No Symptoms - Patient Data Vitals - Most Recent: Last Vital Signs Temp 97.8 F 02/25/20 08:00 Pulse 74 02/25/20 08:00 Resp 16 02/25/20 08:00 BP 120/69 02/25/20 08:36 Pulse Ox 91 L 02/25/20 08:00 Weight - Most Recent: 193 lb 1.6 oz I&O - Last 24 Hours: Intake & Output 02/24/20 02/25/20 02/25/20 22:59 06:59 14:59 Intake Total 300 100 Output Total 2 Balance 298 100 Lab Results Last 24 Hours: Laboratory Results - last 24 hr 02/25/20 02/25/20 02/25/20 Range/Units 06:30 06:30 06:30 D-Dimer, Quantitative 0.98 H (0.19-0.50) mg/L Sodium 138 (136-145) mEq/L Potassium 3.7 (3.5-5.1) mEq/L Chloride 102 (98-107) mEq/L Carbon Dioxide 26 (21-32) mEq/L Anion Gap 13.7 (5-15) BUN 13 (7-18) mg/dL Creatinine 0.8 (0.7-1.3) mg/dL Est Cr Clr Drug Dosing 97.00 mL/min Estimated GFR (MDRD) > 60 (>60) mL/min BUN/Creatinine Ratio 16.3 (14-18) Glucose 105 (80-115) mg/dL Calcium 8.6 (8.5-10.1) mg/dL Magnesium 2.3 (1.8-2.4) mg/dl Ferritin 1362 H (26-388) ng/ml Total Bilirubin 0.8 (0.2-1.0) mg/dL AST 45 H (15-37) U/L ALT 54 (16-63) U/L Alkaline Phosphatase 70 (46-116) U/L Lactate Dehydrogenase 185 (85-227) U/L C-Reactive Protein 7.9 H* (<1.0) mg/dL Total Protein 6.4 (6.4-8.2) g/dl Albumin 2.6 L (3.4-5.0) g/dl Globulin 3.8 gm/dL Albumin/Globulin Ratio 0.7 L (1-2) Ryan Results Last 24 Hours: Microbiology 02/24/20 18:15 Gram Stain - Final Sputum - Other Sputum Culture - Final Med Orders - Current: Current Medications Acetaminophen (Tylenol) 650 mg PO Q4H PRN PRN Reason: Pain (Mild 1-3)/fever Last Admin: 02/23/20 22:43 Dose: 650 mg Aspirin (Halfprin) 81 mg PO DAILY [facility] Last Admin: 02/25/20 08:35 Dose: 81 mg Benzonatate (Tessalon Perles) 200 mg PO TID [facility] Last Admin: 02/25/20 08:36 Dose: 200 mg Clopidogrel Bisulfate (Plavix) 75 mg PO Q48H [facility] Last Admin: 02/25/20 08:35 Dose: 75 mg Diltiazem HCl (Dilacor Xr) 240 mg PO BEDTIME [facility] Last Admin: 02/24/20 20:27 Dose: 240 mg Docusate Sodium (Colace) 100 mg PO BID [facility] Last Admin: 02/25/20 08:35 Dose: 100 mg Enalapril Maleate (Vasotec) 10 mg PO BID [facility] Last Admin: 02/25/20 08:35 Dose: 10 mg Enoxaparin Sodium (Lovenox) 40 mg SUBCUT DAILY [facility] Last Admin: 02/25/20 08:34 Dose: 40 mg Finasteride (Proscar) 5 mg PO DAILY [facility] Last Admin: 02/25/20 08:36 Dose: 5 mg Hydroxychloroquine Sulfate (Plaquenil) 400 mg PO Q24H [facility] Stop: 02/27/20 12:01 Last Admin: 02/25/20 11:40 Dose: 400 mg Azithromycin 250 mg/ Sodium (Chloride) 250 mls @ 250 mls/hr IV Q24H [facility] Stop: 02/26/20 17:01 Last Admin: 02/24/20 17:27 Dose: 250 mls/hr Isosorbide Mononitrate (Imdur) 30 mg PO BID [facility] Last Admin: 02/25/20 08:36 Dose: 30 mg Lamotrigine (Lamotrigine) 250 mg PO Q12H [facility] Last Admin: 02/25/20 08:36 Dose: 250 mg Levetiracetam (Keppra) 500 mg PO BID [facility] Last Admin: 02/25/20 08:35 Dose: 500 mg Nitroglycerin (Nitrostat) 0.4 mg SL ASDIRECTED PRN PRN Reason: Chest Pain Polyethylene Glycol (Miralax) 17 gm PO DAILY PRN PRN Reason: Constipation Promethazine HCl/Codeine (Phenergan With Codeine) 5 ml PO Q4H PRN PRN Reason: Cough Last Admin: 02/24/20 20:32 Dose: 5 ml Rosuvastatin Calcium (Crestor) 20 mg PO DAILY [facility] Last Admin: 02/25/20 08:36 Dose: 20 mg Sodium Chloride (Saline Flush) 10 ml FLUSH ASDIRECTED PRN PRN Reason: Keep Vein Open Last Admin: 02/23/20 10:41 Dose: 10 ml Discontinued Medications Hydroxychloroquine Sulfate (Plaquenil) 400 mg PO ONETIME ONE Stop: 02/23/20 13:04 Last Admin: 02/23/20 14:08 Dose: 400 mg Hydroxychloroquine Sulfate (Plaquenil) 400 mg PO ONETIME ONE Stop: 02/23/20 21:01 Last Admin: 02/23/20 20:06 Dose: 400 mg Promethazine HCl/Codeine (Phenergan With Codeine) 5 ml PO ONETIME ONE Stop: 02/23/20 10:06 Last Admin: 02/23/20 10:18 Dose: 5 ml Promethazine HCl/Codeine (Phenergan With Codeine) 5 ml PO ONETIME ONE Stop: 02/23/20 14:17 Last Admin: 02/23/20 14:30 Dose: 5 ml - Exam Quality Assessment: Supplemental Oxygen General: Alert, Oriented HEENT: Pupils Equal, Mucous Membr. Moist/[place] Neck: Supple Lungs: Decreased Breath Sounds, Crackles. No: Normal Respiratory Effort ( increased somatic areas of increased respiratory rate and effort) Cardiovascular: Regular Rate, Regular Rhythm GI/Abdominal Exam: Soft, Non-Tender, No Distention Extremities: Normal Inspection, Normal Range of Motion, Non-Tender, No Pedal Edema, Normal Capillary Refill Skin: Warm, Dry, Intact Psy/Mental Status: Alert, Normal Affect, Normal Mood Sepsis Event Note - Evaluation Sepsis Screening Result: No Definite Risk - Focused Exam Vital Signs: Vital Signs Temp Pulse Resp BP BP Pulse Ox 02/25/20 08:36 120/69 02/25/20 08:35 120/69 02/25/20 08:00 97.8 F 74 16 120/69 91 L 02/25/20 04:00 99.3 F 62 16 107/63 93 L Date Exam was Performed: 02/25/20 Time Exam was Performed: 12:34 - Problem List & Annotations (1) Hypoxia SNOMED Code(s): 488327332 Code(s): R09.02 - HYPOXEMIA Status: Acute Current Visit: Yes (2) Respiratory tract infection due to COVID-19 virus SNOMED Code(s): 970949638 Code(s): U07.1 - COVID-19; J98.8 - OTHER SPECIFIED RESPIRATORY DISORDERS Status: Acute Current Visit: Yes - Problem List Review Problem List Initiated/Reviewed/Updated: Yes - My Orders Last 24 Hours: My Active Orders 02/24/20 12:00 Hydroxychloroquine [Plaquenil] 400 mg PO Q24H 02/24/20 22:06 CULTURE SPUTUM + SMEAR [RM] Routine 02/25/20 08:00 Admission Status [Patient Status] [ADT] Routine 02/25/20 09:00 Clopidogrel [Plavix] 75 mg PO Q48H 02/26/20 05:11 C-REACTIVE PROTEIN [CHEM] AM COMPREHENSIVE METABOLIC PN,CMP [CHEM] AM D-DIMER QUANTITATIVE [COAG] AM FERRITIN [CHEM] AM LACTATE DEHYDROGENASE,LDH [CHEM] AM MAGNESIUM [CHEM] AM 02/27/20 05:11 C-REACTIVE PROTEIN [CHEM] AM COMPREHENSIVE METABOLIC PN,CMP [CHEM] AM D-DIMER QUANTITATIVE [COAG] AM FERRITIN [CHEM] AM LACTATE DEHYDROGENASE,LDH [CHEM] AM MAGNESIUM [CHEM] AM 02/28/20 05:11 C-REACTIVE PROTEIN [CHEM] AM COMPREHENSIVE METABOLIC PN,CMP [CHEM] AM D-DIMER QUANTITATIVE [COAG] AM FERRITIN [CHEM] AM LACTATE DEHYDROGENASE,LDH [CHEM] AM MAGNESIUM [CHEM] AM 02/29/20 05:11 C-REACTIVE PROTEIN [CHEM] AM COMPREHENSIVE METABOLIC PN,CMP [CHEM] AM D-DIMER QUANTITATIVE [COAG] AM FERRITIN [CHEM] AM LACTATE DEHYDROGENASE,LDH [CHEM] AM MAGNESIUM [CHEM] AM - Plan Plan:: Assessment Day of admission 69-year-old male with positive COVID-19 with hypoxemia Right upper lobe pneumonia secondary to COVID-19 * Patient's initial response to 1 L of O2 brought his oxygenation to 95%. A few hours later his oxygenation however he dropped to 92%. * Chest x-ray is positive for patchy right upper lobe infiltrate within the perihilar region. * Patient has a history of heart disease a known risk factor for severe disease from COVID-19 * WBC 5.96 * Ferritin 1391, C-reactive protein 8.4, LDH 203 * Received first dose of hydroxychloroquine 400 mg in the emergency room * Has been on 3 days of azithromycin per patient Coronary artery disease * History of three-vessel bypass and CA * Home meds include isosorbide mononitrate, clopidogrel, nitroglycerin as needed * No current chest pain * Troponin less than 0.017 * Aspirin 81 mg daily * Allergy to beta-blockers Hypertension * Blood pressure controlled: 134/75 * Home medications: Diltiazem CD 240 mg at bedtime, enalapril 10 mg twice daily Seizure disorder * History of [place] seizures * Home medication Keppra 500 mg twice daily, lamotrigine 250 mg twice daily History of hyperlipidemia and anxiety. Day 1 * No significant change in respiratory effort or rate * Ferritin 1711, C-reactive protein 8.9, LDH 222, d-dimer 1.01. All these parameters are slightly increased * Hemodynamically stable. * Continue encouraging him to prone. During the day he is resistant to proning. Day 2 * Improvement in respiratory status. Respiratory rate now is down to 16 * Still requiring 1 to 2 L via nasal cannula, but oxygen saturations continue to improve. * Ferritin decreased at 1372, d-dimer decreased to 0.98, C-reactive protein decreased to 7.9, LDH also decreased to 185. * Overall he has had significant improvement and is ready to be switched to MedSurg status Plan * Changed to MedSurg status * FiO2 to keep SPO2 above 92% * Utilize escalation of oxygen therapy algorithm in COVID-19. Start with low flow oxygen 1 to 6 L nasal cannula without humidification. We will then increase to high flow nasal cannula with a max of 30 L flow at 50-100% oxygen. If oxygenation is still not adequate may consider noninvasive ventilation versus early intubation. * Day 3 of 5 of hydroxychloroquine. * Last dose of azithromycin tomorrow * Avoid nebulizers and steroids. * Continue home medications * Encouraged patient to self prone. * Avoid aggressive fluid administration. * Monitor CBC, CMP, magnesium, d-dimer, ferritin, LDH, C-reactive protein * VTE prophylaxis with Lovenox * CODE STATUS: Full code
[2020-02-25] MEDS: Azithromycin 250 MG in Sodium Chloride 0.9% 250 ML IV SCH ×2 (17:45→17:47)
[2020-02-25] MEDS: Diltiazem 240 MG Cap.ER PO SCH (20:26)
[2020-02-25] MEDS: Codeine/Promethazine 10-6.25 MG/5 ML Syrup 5 ML UD Cup PO PRN (20:31)
[2020-02-26] MEDS: Enoxaparin 40 MG/0.4 ML Syringe SUBCUT SCH (10:02)
[2020-02-26] MEDS: Rosuvastatin 10 MG Tab PO SCH (10:02)
[2020-02-26] MEDS: lamoTRIgine 100 MG Tab PO SCH ×2 (10:02→20:35)
[2020-02-26] MEDS: Aspirin 81 MG Tab.EC PO SCH (10:02)
[2020-02-26] MEDS: Benzonatate 100 MG Cap PO SCH ×3 (10:02→20:34)
[2020-02-26] MEDS: Isosorbide Mononitrate 30 MG Tab.ER PO SCH ×2 (10:03→20:36)
[2020-02-26] MEDS: Enalapril 5 MG Tab PO SCH ×2 (10:03→20:35)
[2020-02-26] MEDS: levETIRAcetam 500 MG Tab PO SCH ×2 (10:03→20:36)
[2020-02-26] MEDS: Docusate Sodium 100 MG Cap PO SCH ×2 (10:03→20:34)
[2020-02-26] MEDS: Finasteride 5 MG Tab PO SCH (10:03)
[2020-02-26] MEDS: Hydroxychloroquine 200 MG Tab PO SCH (12:37)
[2020-02-26] MEDS ORDERED: Azithromycin 250 MG Tab PO SCH (17:00)
--- NOTE | 2020-02-26 20:26 | PCM.PN ---
- General Info Date of Service: 02/26/20 Admission Dx/Problem (Free Text): Admission Diagnosis/Problem Admission Diagnosis/Problem Respiratory distress Subjective Update: Patient continues to improve. He denies any pain. He has less shortness of breath. Functional Status: Reports: Pain Controlled - Review of Systems General: Reports: No Symptoms HEENT: Reports: No Symptoms Pulmonary: Reports: Shortness of Breath Cardiovascular: Reports: No Symptoms Gastrointestinal: Reports: No Symptoms - Patient Data Vitals - Most Recent: Last Vital Signs Temp 97.5 F 02/26/20 15:00 Pulse 59 L 02/26/20 03:00 Resp 18 02/26/20 15:00 BP 136/73 02/26/20 15:00 Pulse Ox 98 02/26/20 19:30 Weight - Most Recent: 193 lb 12.581 oz I&O - Last 24 Hours: Intake & Output 02/26/20 02/26/20 02/26/20 06:59 14:59 22:59 Intake Total 150 1520 Balance 150 1520 Lab Results Last 24 Hours: Laboratory Results - last 24 hr 02/26/20 02/26/20 02/26/20 Range/Units 05:36 05:36 05:36 D-Dimer, Quantitative 0.80 H (0.19-0.50) mg/L Sodium 139 (136-145) mEq/L Potassium 3.7 (3.5-5.1) mEq/L Chloride 105 (98-107) mEq/L Carbon Dioxide 25 (21-32) mEq/L Anion Gap 12.7 (5-15) BUN 10 (7-18) mg/dL Creatinine 0.7 (0.7-1.3) mg/dL Est Cr Clr Drug Dosing 110.86 mL/min Estimated GFR (MDRD) > 60 (>60) mL/min BUN/Creatinine Ratio 14.3 (14-18) Glucose 96 (80-115) mg/dL Calcium 8.9 (8.5-10.1) mg/dL Magnesium 2.1 (1.8-2.4) mg/dl Ferritin 1663 H (26-388) ng/ml Total Bilirubin 0.8 (0.2-1.0) mg/dL AST 40 H (15-37) U/L ALT 51 (16-63) U/L Alkaline Phosphatase 72 (46-116) U/L Lactate Dehydrogenase 183 (85-227) U/L C-Reactive Protein 6.1 H* (<1.0) mg/dL Total Protein 6.2 L (6.4-8.2) g/dl Albumin 2.6 L (3.4-5.0) g/dl Globulin 3.6 gm/dL Albumin/Globulin Ratio 0.7 L (1-2) Ryan Results Last 24 Hours: Microbiology 02/26/20 13:25 Gram Stain - Final Sputum - Expectorated Sputum Culture - Final Med Orders - Current: Current Medications Acetaminophen (Tylenol) 650 mg PO Q4H PRN PRN Reason: Pain (Mild 1-3)/fever Last Admin: 02/23/20 22:43 Dose: 650 mg Aspirin (Halfprin) 81 mg PO DAILY [facility] Last Admin: 02/26/20 10:02 Dose: 81 mg Benzonatate (Tessalon Perles) 200 mg PO TID [facility] Last Admin: 02/26/20 16:18 Dose: 200 mg Clopidogrel Bisulfate (Plavix) 75 mg PO Q48H [facility] Last Admin: 02/25/20 08:35 Dose: 75 mg Diltiazem HCl (Dilacor Xr) 240 mg PO BEDTIME [facility] Last Admin: 02/25/20 20:26 Dose: 240 mg Docusate Sodium (Colace) 100 mg PO BID [facility] Last Admin: 02/26/20 10:03 Dose: 100 mg Enalapril Maleate (Vasotec) 10 mg PO BID [facility] Last Admin: 02/26/20 10:03 Dose: 10 mg Enoxaparin Sodium (Lovenox) 40 mg SUBCUT DAILY [facility] Last Admin: 02/26/20 10:02 Dose: 40 mg Finasteride (Proscar) 5 mg PO DAILY [facility] Last Admin: 02/26/20 10:03 Dose: 5 mg Hydroxychloroquine Sulfate (Plaquenil) 400 mg PO Q24H [facility] Stop: 02/27/20 12:01 Last Admin: 02/26/20 12:37 Dose: 400 mg Isosorbide Mononitrate (Imdur) 30 mg PO BID [facility] Last Admin: 02/26/20 10:03 Dose: 30 mg Lamotrigine (Lamotrigine) 250 mg PO Q12H [facility] Last Admin: 02/26/20 10:02 Dose: 250 mg Levetiracetam (Keppra) 500 mg PO BID [facility] Last Admin: 02/26/20 10:03 Dose: 500 mg Nitroglycerin (Nitrostat) 0.4 mg SL ASDIRECTED PRN PRN Reason: Chest Pain Polyethylene Glycol (Miralax) 17 gm PO DAILY PRN PRN Reason: Constipation Promethazine HCl/Codeine (Phenergan With Codeine) 5 ml PO Q4H PRN PRN Reason: Cough Last Admin: 02/25/20 20:31 Dose: 5 ml Rosuvastatin Calcium (Crestor) 20 mg PO DAILY [facility] Last Admin: 02/26/20 10:02 Dose: 20 mg Sodium Chloride (Saline Flush) 10 ml FLUSH ASDIRECTED PRN PRN Reason: Keep Vein Open Last Admin: 02/23/20 10:41 Dose: 10 ml Discontinued Medications Azithromycin (Zithromax) 250 mg PO 1700 [facility] Stop: 02/26/20 17:01 Last Admin: 02/26/20 16:19 Dose: 250 mg Hydroxychloroquine Sulfate (Plaquenil) 400 mg PO ONETIME ONE Stop: 02/23/20 13:04 Last Admin: 02/23/20 14:08 Dose: 400 mg Hydroxychloroquine Sulfate (Plaquenil) 400 mg PO ONETIME ONE Stop: 02/23/20 21:01 Last Admin: 02/23/20 20:06 Dose: 400 mg Azithromycin 250 mg/ Sodium (Chloride) 250 mls @ 250 mls/hr IV Q24H [facility] Stop: 02/26/20 17:01 Last Admin: 02/25/20 17:47 Dose: Not Given Promethazine HCl/Codeine (Phenergan With Codeine) 5 ml PO ONETIME ONE Stop: 02/23/20 10:06 Last Admin: 02/23/20 10:18 Dose: 5 ml Promethazine HCl/Codeine (Phenergan With Codeine) 5 ml PO ONETIME ONE Stop: 02/23/20 14:17 Last Admin: 02/23/20 14:30 Dose: 5 ml - Exam Quality Assessment: Supplemental Oxygen General: Alert, Oriented HEENT: Pupils Equal, Mucous Membr. Moist/[place] Neck: Supple Lungs: Decreased Breath Sounds. No: Normal Respiratory Effort (Mildly increased respiratory rate) Cardiovascular: Regular Rate, Regular Rhythm GI/Abdominal Exam: Normal Bowel Sounds, Soft, Non-Tender, No Distention Extremities: Normal Inspection, Normal Range of Motion, Non-Tender, No Pedal Edema, Normal Capillary Refill Skin: Warm, Dry, Intact Psy/Mental Status: Alert, Normal Affect, Normal Mood Sepsis Event Note - Evaluation Sepsis Screening Result: No Definite Risk - Focused Exam Vital Signs: Vital Signs Temp Resp BP BP Pulse Ox Pulse Ox 02/26/20 19:30 98 02/26/20 18:33 98 02/26/20 15:00 97.5 F 18 136/73 99 02/26/20 10:03 111/62 02/26/20 09:00 97.0 F 19 111/62 96 Date Exam was Performed: 02/26/20 Time Exam was Performed: 20:21 - Problem List & Annotations (1) Hypoxia SNOMED Code(s): 521296461 Code(s): R09.02 - HYPOXEMIA Status: Acute Current Visit: Yes (2) Respiratory tract infection due to COVID-19 virus SNOMED Code(s): 968886847 Code(s): U07.1 - COVID-19; J98.8 - OTHER SPECIFIED RESPIRATORY DISORDERS Status: Acute Current Visit: Yes - Problem List Review Problem List Initiated/Reviewed/Updated: Yes - My Orders Last 24 Hours: My Active Orders 02/26/20 11:08 EKG 12 Lead [EKG Documentation Completion] [RC] ROUTINE 02/26/20 Lunch Heart Healthy Diet [DIET] 02/27/20 05:11 C-REACTIVE PROTEIN [CHEM] AM CBC WITH AUTO DIFF [HEME] AM COMPREHENSIVE METABOLIC PN,CMP [CHEM] AM D-DIMER QUANTITATIVE [COAG] AM FERRITIN [CHEM] AM HEPATITIS B SURFACE AG [CHEM] AM HEPATITIS C ANTIBODY [CHEM] AM HIV RAPID SCREEN RLFX COMFIRM [CHEM] AM INR,PT,PROTHROMBIN TIME [COAG] AM LACTATE DEHYDROGENASE,LDH [CHEM] AM MAGNESIUM [CHEM] AM 02/28/20 05:11 C-REACTIVE PROTEIN [CHEM] AM CBC WITH AUTO DIFF [HEME] AM COMPREHENSIVE METABOLIC PN,CMP [CHEM] AM D-DIMER QUANTITATIVE [COAG] AM FERRITIN [CHEM] AM LACTATE DEHYDROGENASE,LDH [CHEM] AM MAGNESIUM [CHEM] AM 02/29/20 05:11 C-REACTIVE PROTEIN [CHEM] AM CBC WITH AUTO DIFF [HEME] AM COMPREHENSIVE METABOLIC PN,CMP [CHEM] AM D-DIMER QUANTITATIVE [COAG] AM FERRITIN [CHEM] AM LACTATE DEHYDROGENASE,LDH [CHEM] AM MAGNESIUM [CHEM] AM - Plan Plan:: Assessment Day of admission 69-year-old male with positive COVID-19 with hypoxemia Right upper lobe pneumonia secondary to COVID-19 * Patient's initial response to 1 L of O2 brought his oxygenation to 95%. A few hours later his oxygenation however he dropped to 92%. * Chest x-ray is positive for patchy right upper lobe infiltrate within the perihilar region. * Patient has a history of heart disease a known risk factor for severe disease from COVID-19 * WBC 5.96 * Ferritin 1391, C-reactive protein 8.4, LDH 203 * Received first dose of hydroxychloroquine 400 mg in the emergency room * Has been on 3 days of azithromycin per patient Coronary artery disease * History of three-vessel bypass and [place] * Home meds include isosorbide mononitrate, clopidogrel, nitroglycerin as needed * No current chest pain * Troponin less than 0.017 * Aspirin 81 mg daily * Allergy to beta-blockers Hypertension * Blood pressure controlled: 134/75 * Home medications: Diltiazem CD 240 mg at bedtime, enalapril 10 mg twice daily Seizure disorder * History of petit mall seizures * Home medication Keppra 500 mg twice daily, lamotrigine 250 mg twice daily History of hyperlipidemia and anxiety. Day 1 * No significant change in respiratory effort or rate * Ferritin 1711, C-reactive protein 8.9, LDH 222, d-dimer 1.01. All these parameters are slightly increased * Hemodynamically stable. * Continue encouraging him to prone. During the day he is resistant to proning. Day 2 * Improvement in respiratory status. Respiratory rate now is down to 16 * Still requiring 1 to 2 L via nasal cannula, but oxygen saturations continue to improve. * Ferritin decreased at 1372, d-dimer decreased to 0.98, C-reactive protein decreased to 7.9, LDH also decreased to 185. * Overall he has had significant improvement and is ready to be switched to MedSurg status Day 3 * Continued improvement in both respiratory rate and oxygen requirement. * Still requiring 1 to 2 L nasal cannula * Ferritin increased to 1663, d-dimer decreased to 0.80, LDH 183, C-reactive protein decreased to 6.1, Plan * MedSurg status * FiO2 to keep SPO2 above 92% * Utilize escalation of oxygen therapy algorithm in COVID-19. Start with low flow oxygen 1 to 6 L nasal cannula without humidification. We will then increase to high flow nasal cannula with a max of 30 L flow at 50-100% oxygen. If oxygenation is still not adequate may consider noninvasive ventilation versus early intubation. * Day 4 of 5 of hydroxychloroquine. * Last dose of azithromycin * Avoid nebulizers and steroids. * Continue home medications * Encouraged patient to self prone. * Avoid aggressive fluid administration. * Monitor CBC, CMP, magnesium, d-dimer, ferritin, LDH, C-reactive protein * VTE prophylaxis with Lovenox * CODE STATUS: Full code
[2020-02-26] MEDS: Diltiazem 240 MG Cap.ER PO SCH (20:34)
[2020-02-27] MEDS: Enoxaparin 40 MG/0.4 ML Syringe SUBCUT SCH (09:45)
[2020-02-27] MEDS: Benzonatate 100 MG Cap PO SCH (09:46)
[2020-02-27] MEDS: lamoTRIgine 100 MG Tab PO SCH (09:46)
[2020-02-27] MEDS: Rosuvastatin 10 MG Tab PO SCH (09:46)
[2020-02-27] MEDS: Docusate Sodium 100 MG Cap PO SCH (09:46)
[2020-02-27] MEDS: Isosorbide Mononitrate 30 MG Tab.ER PO SCH (09:47)
[2020-02-27] MEDS: levETIRAcetam 500 MG Tab PO SCH (09:47)
[2020-02-27] MEDS: Aspirin 81 MG Tab.EC PO SCH (09:47)
[2020-02-27] MEDS: Clopidogrel 75 MG Tab PO SCH (09:47)
[2020-02-27] MEDS: Finasteride 5 MG Tab PO SCH (09:47)
[2020-02-27] MEDS: Enalapril 5 MG Tab PO SCH (09:47)
--- NOTE | 2020-02-27 09:59 | PCM.PN ---
- General Info Date of Service: 02/27/20 Admission Dx/Problem (Free Text): Admission Diagnosis/Problem Admission Diagnosis/Problem Respiratory distress - Patient Data Vitals - Most Recent: Last Vital Signs Temp 98 F 02/27/20 03:00 Pulse 59 L 02/26/20 03:00 Resp 16 02/27/20 03:00 BP 139/72 02/27/20 09:47 Pulse Ox 92 L 02/27/20 06:45 Weight - Most Recent: 193 lb 8 oz I&O - Last 24 Hours: Intake & Output 02/26/20 02/27/20 02/27/20 22:59 06:59 14:59 Intake Total 1640 600 Balance 1640 600 Lab Results Last 24 Hours: Laboratory Results - last 24 hr 02/27/20 02/27/20 02/27/20 Range/Units 05:19 05:19 05:19 WBC 4.98 (4.23-9.07) K/mm3 RBC 4.22 L (4.63-6.08) M/mm3 Hgb 12.2 L D (13.7-17.5) gm/dl Hct 37.0 L (40.1-51.0) % MCV 87.7 (79.0-92.2) fl MCH 28.9 (25.7-32.2) pg MCHC 33.0 (32.2-35.5) g/dl RDW Std Deviation 40.2 (35.1-43.9) fL Plt Count 324 (163-337) K/mm3 MPV 10.1 (9.4-12.3) fl Neut % (Auto) 66.6 (34.0-67.9) % Lymph % (Auto) 16.7 L (21.8-53.1) % [place] % (Auto) 13.3 H (5.3-12.2) % Eos % (Auto) 2.2 (0.8-7.0) Baso % (Auto) 0.6 (0.1-1.2) % Neut # (Auto) 3.32 (1.78-5.38) K/mm3 Lymph # (Auto) 0.83 L (1.32-3.57) K/mm3 [place] # (Auto) 0.66 (0.30-0.82) K/mm3 Eos # (Auto) 0.11 (0.04-0.54) K/mm3 Baso # (Auto) 0.03 (0.01-0.08) K/mm3 PT 11.8 (9.7-12.0) SECONDS INR 1.09 D-Dimer, Quantitative 0.67 H (0.19-0.50) mg/L Sodium 143 (136-145) mEq/L Potassium 3.7 (3.5-5.1) mEq/L Chloride 107 (98-107) mEq/L Carbon Dioxide 27 (21-32) mEq/L Anion Gap 12.7 (5-15) BUN 8 (7-18) mg/dL Creatinine 0.7 (0.7-1.3) mg/dL Est Cr Clr Drug Dosing 110.86 mL/min Estimated GFR (MDRD) > 60 (>60) mL/min BUN/Creatinine Ratio 11.4 L (14-18) Glucose 100 (80-115) mg/dL Calcium 9.1 (8.5-10.1) mg/dL Magnesium 2.2 (1.8-2.4) mg/dl Total Bilirubin 0.7 (0.2-1.0) mg/dL AST 41 H (15-37) U/L ALT 51 (16-63) U/L Alkaline Phosphatase 77 (46-116) U/L Lactate Dehydrogenase 196 (85-227) U/L C-Reactive Protein 4.9 H* (<1.0) mg/dL Total Protein 6.3 L (6.4-8.2) g/dl Albumin 2.7 L (3.4-5.0) g/dl Globulin 3.6 gm/dL Albumin/Globulin Ratio 0.8 L (1-2) Hepatitis C Antibody (NEGATIVE) HIV-1 Ab Rapid Screen (NEGATIVE) 02/27/20 Range/Units 05:19 WBC (4.23-9.07) K/mm3 RBC (4.63-6.08) M/mm3 Hgb (13.7-17.5) gm/dl Hct (40.1-51.0) % MCV (79.0-92.2) fl MCH (25.7-32.2) pg MCHC (32.2-35.5) g/dl RDW Std Deviation (35.1-43.9) fL Plt Count (163-337) K/mm3 MPV (9.4-12.3) fl Neut % (Auto) (34.0-67.9) % Lymph % (Auto) (21.8-53.1) % [place] % (Auto) (5.3-12.2) % Eos % (Auto) (0.8-7.0) Baso % (Auto) (0.1-1.2) % Neut # (Auto) (1.78-5.38) K/mm3 Lymph # (Auto) (1.32-3.57) K/mm3 [place] # (Auto) (0.30-0.82) K/mm3 Eos # (Auto) (0.04-0.54) K/mm3 Baso # (Auto) (0.01-0.08) K/mm3 PT (9.7-12.0) SECONDS INR D-Dimer, Quantitative (0.19-0.50) mg/L Sodium (136-145) mEq/L Potassium (3.5-5.1) mEq/L Chloride (98-107) mEq/L Carbon Dioxide (21-32) mEq/L Anion Gap (5-15) BUN (7-18) mg/dL Creatinine (0.7-1.3) mg/dL Est Cr Clr Drug Dosing mL/min Estimated GFR (MDRD) (>60) mL/min BUN/Creatinine Ratio (14-18) Glucose (80-115) mg/dL Calcium (8.5-10.1) mg/dL Magnesium (1.8-2.4) mg/dl Total Bilirubin (0.2-1.0) mg/dL AST (15-37) U/L ALT (16-63) U/L Alkaline Phosphatase (46-116) U/L Lactate Dehydrogenase (85-227) U/L C-Reactive Protein (<1.0) mg/dL Total Protein (6.4-8.2) g/dl Albumin (3.4-5.0) g/dl Globulin gm/dL Albumin/Globulin Ratio (1-2) Hepatitis C Antibody Negative (NEGATIVE) HIV-1 Ab Rapid Screen Negative (NEGATIVE) Ryan Results Last 24 Hours: Microbiology 02/26/20 13:25 Gram Stain - Final Sputum - Expectorated Sputum Culture - Final Med Orders - Current: Current Medications Acetaminophen (Tylenol) 650 mg PO Q4H PRN PRN Reason: Pain (Mild 1-3)/fever Last Admin: 02/23/20 22:43 Dose: 650 mg Aspirin (Halfprin) 81 mg PO DAILY [facility] Last Admin: 02/27/20 09:47 Dose: 81 mg Benzonatate (Tessalon Perles) 200 mg PO TID [facility] Last Admin: 02/27/20 09:46 Dose: 200 mg Clopidogrel Bisulfate (Plavix) 75 mg PO Q48H [facility] Last Admin: 02/27/20 09:47 Dose: 75 mg Diltiazem HCl (Dilacor Xr) 240 mg PO BEDTIME [facility] Last Admin: 02/26/20 20:34 Dose: 240 mg Docusate Sodium (Colace) 100 mg PO BID [facility] Last Admin: 02/27/20 09:46 Dose: 100 mg Enalapril Maleate (Vasotec) 10 mg PO BID [facility] Last Admin: 02/27/20 09:47 Dose: 10 mg Enoxaparin Sodium (Lovenox) 40 mg SUBCUT DAILY [facility] Last Admin: 02/27/20 09:45 Dose: 40 mg Finasteride (Proscar) 5 mg PO DAILY [facility] Last Admin: 02/27/20 09:47 Dose: 5 mg Hydroxychloroquine Sulfate (Plaquenil) 400 mg PO Q24H [facility] Stop: 02/27/20 12:01 Last Admin: 02/26/20 12:37 Dose: 400 mg Isosorbide Mononitrate (Imdur) 30 mg PO BID [facility] Last Admin: 02/27/20 09:47 Dose: 30 mg Lamotrigine (Lamotrigine) 250 mg PO Q12H [facility] Last Admin: 02/27/20 09:46 Dose: 250 mg Levetiracetam (Keppra) 500 mg PO BID [facility] Last Admin: 02/27/20 09:47 Dose: 500 mg Nitroglycerin (Nitrostat) 0.4 mg SL ASDIRECTED PRN PRN Reason: Chest Pain Polyethylene Glycol (Miralax) 17 gm PO DAILY PRN PRN Reason: Constipation Promethazine HCl/Codeine (Phenergan With Codeine) 5 ml PO Q4H PRN PRN Reason: Cough Last Admin: 02/25/20 20:31 Dose: 5 ml Rosuvastatin Calcium (Crestor) 20 mg PO DAILY [facility] Last Admin: 02/27/20 09:46 Dose: 20 mg Sodium Chloride (Saline Flush) 10 ml FLUSH ASDIRECTED PRN PRN Reason: Keep Vein Open Last Admin: 02/23/20 10:41 Dose: 10 ml Discontinued Medications Azithromycin (Zithromax) 250 mg PO 1700 [facility] Stop: 02/26/20 17:01 Last Admin: 02/26/20 16:19 Dose: 250 mg Hydroxychloroquine Sulfate (Plaquenil) 400 mg PO ONETIME ONE Stop: 02/23/20 13:04 Last Admin: 02/23/20 14:08 Dose: 400 mg Hydroxychloroquine Sulfate (Plaquenil) 400 mg PO ONETIME ONE Stop: 02/23/20 21:01 Last Admin: 02/23/20 20:06 Dose: 400 mg Azithromycin 250 mg/ Sodium (Chloride) 250 mls @ 250 mls/hr IV Q24H [facility] Stop: 02/26/20 17:01 Last Admin: 02/25/20 17:47 Dose: Not Given Promethazine HCl/Codeine (Phenergan With Codeine) 5 ml PO ONETIME ONE Stop: 02/23/20 10:06 Last Admin: 02/23/20 10:18 Dose: 5 ml Promethazine HCl/Codeine (Phenergan With Codeine) 5 ml PO ONETIME ONE Stop: 02/23/20 14:17 Last Admin: 02/23/20 14:30 Dose: 5 ml Sepsis Event Note - Evaluation Sepsis Screening Result: No Definite Risk - Focused Exam Vital Signs: Vital Signs Temp Resp BP BP Pulse Ox Pulse Ox 02/27/20 09:47 139/72 02/27/20 06:45 92 L 02/27/20 06:34 95 02/27/20 06:15 91 L 02/27/20 06:00 91 L 02/27/20 05:45 90 L 02/27/20 05:30 93 L 02/27/20 05:15 92 L 02/27/20 05:00 94 L 02/27/20 04:45 93 L 02/27/20 04:30 93 L 02/27/20 04:15 92 L 02/27/20 04:01 92 L 02/27/20 04:00 117/71 91 L 02/27/20 03:59 94 L 02/27/20 03:45 91 L 02/27/20 03:30 90 L 02/27/20 03:15 92 L 02/27/20 03:00 98 F 16 106/60 89 L 02/27/20 02:45 92 L 02/27/20 02:30 92 L 02/27/20 02:15 93 L 02/27/20 02:00 92 L 02/27/20 01:45 93 L 02/27/20 01:35 92 L 02/27/20 01:15 94 L 02/27/20 01:00 94 L 02/27/20 00:45 93 L 02/27/20 00:30 93 L 02/27/20 00:15 92 L 02/27/20 00:01 106/60 93 L 02/27/20 00:00 92 L 02/26/20 23:45 93 L 02/26/20 23:30 92 L 02/26/20 23:15 92 L 02/26/20 23:00 93 L 02/26/20 22:45 93 L 02/26/20 22:30 92 L 02/26/20 22:22 93 L 02/26/20 22:15 92 L 02/26/20 22:00 92 L Date Exam was Performed: 02/27/20 Time Exam was Performed: 09:56 - Problem List & Annotations (1) Hypoxia SNOMED Code(s): 435465500 Code(s): R09.02 - HYPOXEMIA Status: Acute Current Visit: Yes (2) Respiratory tract infection due to COVID-19 virus SNOMED Code(s): 854059424 Code(s): U07.1 - COVID-19; J98.8 - OTHER SPECIFIED RESPIRATORY DISORDERS Status: Acute Current Visit: Yes - Problem List Review Problem List Initiated/Reviewed/Updated: Yes - My Orders Last 24 Hours: My Active Orders 02/26/20 Lunch Heart Healthy Diet [DIET] 02/27/20 05:19 FERRITIN [CHEM] AM HEPATITIS B SURFACE AG [CHEM] AM 02/28/20 05:11 C-REACTIVE PROTEIN [CHEM] AM CBC WITH AUTO DIFF [HEME] AM COMPREHENSIVE METABOLIC PN,CMP [CHEM] AM D-DIMER QUANTITATIVE [COAG] AM FERRITIN [CHEM] AM LACTATE DEHYDROGENASE,LDH [CHEM] AM MAGNESIUM [CHEM] AM 02/29/20 05:11 C-REACTIVE PROTEIN [CHEM] AM CBC WITH AUTO DIFF [HEME] AM COMPREHENSIVE METABOLIC PN,CMP [CHEM] AM D-DIMER QUANTITATIVE [COAG] AM FERRITIN [CHEM] AM LACTATE DEHYDROGENASE,LDH [CHEM] AM MAGNESIUM [CHEM] AM - Plan Plan:: Assessment Day of admission 69-year-old male with positive COVID-19 with hypoxemia Right upper lobe pneumonia secondary to COVID-19 * Patient's initial response to 1 L of O2 brought his oxygenation to 95%. A few hours later his oxygenation however he dropped to 92%. * Chest x-ray is positive for patchy right upper lobe infiltrate within the perihilar region. * Patient has a history of heart disease a known risk factor for severe disease from COVID-19 * WBC 5.96 * Ferritin 1391, C-reactive protein 8.4, LDH 203 * Received first dose of hydroxychloroquine 400 mg in the emergency room * Has been on 3 days of azithromycin per patient Coronary artery disease * History of three-vessel bypass and [place] * Home meds include isosorbide mononitrate, clopidogrel, nitroglycerin as needed * No current chest pain * Troponin less than 0.017 * Aspirin 81 mg daily * Allergy to beta-blockers Hypertension * Blood pressure controlled: 134/75 * Home medications: Diltiazem CD 240 mg at bedtime, enalapril 10 mg twice daily Seizure disorder * History of [place] seizures * Home medication Keppra 500 mg twice daily, lamotrigine 250 mg twice daily History of hyperlipidemia and anxiety. Day 1 * No significant change in respiratory effort or rate * Ferritin 1711, C-reactive protein 8.9, LDH 222, d-dimer 1.01. All these parameters are slightly increased * Hemodynamically stable. * Continue encouraging him to prone. During the day he is resistant to proning. Day 2 * Improvement in respiratory status. Respiratory rate now is down to 16 * Still requiring 1 to 2 L via nasal cannula, but oxygen saturations continue to improve. * Ferritin decreased at 1372, d-dimer decreased to 0.98, C-reactive protein decreased to 7.9, LDH also decreased to 185. * Overall he has had significant improvement and is ready to be switched to MedSurg status Day 3 * Continued improvement in both respiratory rate and oxygen requirement. * Still requiring 1 to 2 L nasal cannula * Ferritin increased to 1663, d-dimer decreased to 0.80, LDH 183, C-reactive protein decreased to 6.1, Day 4 * Weaned off of oxygen overnight. Still in the low 90s off of oxygen. * Plan * MedSurg status * FiO2 to keep SPO2 above 92% * Utilize escalation of oxygen therapy algorithm in COVID-19. Start with low flow oxygen 1 to 6 L nasal cannula without humidification. We will then increase to high flow nasal cannula with a max of 30 L flow at 50-100% oxygen. If oxygenation is still not adequate may consider noninvasive ventilation versus early intubation. * Day 5 of 5 of hydroxychloroquine. * * Avoid nebulizers and steroids. * Continue home medications * Encouraged patient to self prone. * Avoid aggressive fluid administration. * Monitor CBC, CMP, magnesium, d-dimer, ferritin, LDH, C-reactive protein * VTE prophylaxis with Lovenox * CODE STATUS: Full code * Length of stay greater than 96 hours secondary to slow recovery of oxygenation secondary to COVID-19.
[2020-02-27] MEDS: Hydroxychloroquine 200 MG Tab PO SCH (12:12)
[2020-02-27 12:35] VITALS: BP 124/75; PULSE 75
--- NOTE | 2020-02-27 13:09 | PCM.DCSUM1 ---
Discharge Summary - Hospital Course HPI Initial Comments: 69-year-old male with known positive COVID-19 who presents to the emergency room with worsening cough and shortness of breath. It was difficult to obtain a good history from him secondary to coughing. Patient was exposed to the coronavirus over 2 weeks ago. He apparently elbow bumped a person that had the coronavirus but he did not know it at the time. He did self quarantine for 2 weeks after finding out the other person was positive. Then 5 days ago he started developing a cough and shortness of breath. He was tested for COVID-19 and started 3 days ago on azithromycin. He has not taken his azithromycin today. He denies any fever or chills. He had some diarrhea several days ago. He has no history of lung disease including asthma or COPD. He is a non- smoker. He has a history of coronary artery disease with CABG, hypertension, ND , hyperlipidemia, seizure disorder, hypothyroidism, and anxiety. In the emergency room he was found to be hypoxemic with a pulse ox in the upper 80s. He was placed on 1 L and saturations went up to the low to mid 90s. CBC, electrolytes, renal function, and liver enzymes were all unremarkable. C- reactive protein was elevated 8.4 and ferritin at 1391. LDH normal at 203. Troponin less than 0.017 and a proBNP of 174. EKG showed sinus rhythm with a ventricular rate of 79 bpm. Normal QTC at 434. Left axis deviation otherwise normal. Checks x-ray showed patchy increased density within the right upper perihilar region. Findings presumably due to pneumonia, either bacterial or viral in etiology. No other acute finding is seen. First dose of hydroxychloroquine 400 mg was given in the emergency room. Brief History: Assessment. 69-year-old male with positive COVID-19 with hypoxemia. Right upper lobe pneumonia secondary to COVID-19. Patient's initial response to 1 L of O2 brought his oxygenation to 95%. A few hours later his oxygenation however he dropped to 92%. Chest x-ray is positive for patchy right upper lobe infiltrate within the perihilar region. Patient has a history of heart disease a known risk factor for severe disease from COVID-19. WBC 5.96. Ferritin 1391, C-reactive protein 8.4, LDH 203. Received first dose of hydroxychloroquine 400 mg in the emergency room. Has been on 3 days of azithromycin per patient. Coronary artery disease. History of three-vessel bypass and ND. Home meds include isosorbide mononitrate, clopidogrel, nitroglycerin as needed. No current chest pain. Troponin less than 0.017. Aspirin 81 mg daily. Allergy to beta-blockers. Hypertension. Blood pressure controlled: 134/75. Home medications: Diltiazem CD 240 mg at bedtime, enalapril 10 mg twice daily. Seizure disorder. History of petit mall seizures. Home medication Keppra 500 mg twice daily, lamotrigine 250 mg twice daily. History of hyperlipidemia and anxiety. Plan. Admit to the ICU for close observation. FiO2 to keep SPO2 above 92%. Utilize escalation of oxygen therapy algorithm in COVID-19. Start with low flow oxygen 1 to 6 L nasal cannula without humidification. We will then increase to high flow nasal cannula with a max of 30 L flow at 50-100% oxygen. If oxygenation is still not adequate may consider noninvasive ventilation versus early intubation. Continue full course of hydroxychloroquine 800 mg in the first day then 400 mg for 4 days. Finished course of azithromycin. Avoid nebulizers and steroids. Continue home medications. Encouraged patient to self prone. Avoid aggressive fluid administration. Monitor CBC, CMP, magnesium, d-dimer, ferritin, LDH, C- reactive protein. VTE prophylaxis with Lovenox. CODE STATUS: Full code Diagnosis: Stroke: No - Discharge Data Discharge Date: 02/27/20 Discharge Disposition: Home, Self-Care 01 Condition: Good - Referral to Home Health Primary Care Physician: Kennedy Zheng MD - Discharge Diagnosis/Problem(s) (1) Hypoxia SNOMED Code(s): 986009956 ICD Code: R09.02 - HYPOXEMIA Status: Acute Current Visit: Yes (2) Respiratory tract infection due to COVID-19 virus SNOMED Code(s): 594677815 ICD Code: U07.1 - COVID-19; J98.8 - OTHER SPECIFIED RESPIRATORY DISORDERS Status: Acute Current Visit: Yes - Patient Summary/Data Hospital Course: Day of admission 69-year-old male with positive COVID-19 with hypoxemia Right upper lobe pneumonia secondary to COVID-19 * Patient's initial response to 1 L of O2 brought his oxygenation to 95%. A few hours later his oxygenation however he dropped to 92%. * Chest x-ray is positive for patchy right upper lobe infiltrate within the perihilar region. * Patient has a history of heart disease a known risk factor for severe disease from COVID-19 * WBC 5.96 * Ferritin 1391, C-reactive protein 8.4, LDH 203 * Received first dose of hydroxychloroquine 400 mg in the emergency room * Has been on 3 days of azithromycin per patient Coronary artery disease * History of three-vessel bypass and ND * Home meds include isosorbide mononitrate, clopidogrel, nitroglycerin as needed * No current chest pain * Troponin less than 0.017 * Aspirin 81 mg daily * Allergy to beta-blockers Hypertension * Blood pressure controlled: 134/75 * Home medications: Diltiazem CD 240 mg at bedtime, enalapril 10 mg twice daily Seizure disorder * History of petit mall seizures * Home medication Keppra 500 mg twice daily, lamotrigine 250 mg twice daily History of hyperlipidemia and anxiety. Day 1 * No significant change in respiratory effort or rate * Ferritin 1711, C-reactive protein 8.9, LDH 222, d-dimer 1.01. All these parameters are slightly increased * Hemodynamically stable. * Continue encouraging him to prone. During the day he is resistant to proning. Day 2 * Improvement in respiratory status. Respiratory rate now is down to 16 * Still requiring 1 to 2 L via nasal cannula, but oxygen saturations continue to improve. * Ferritin decreased at 1372, d-dimer decreased to 0.98, C-reactive protein decreased to 7.9, LDH also decreased to 185. * Overall he has had significant improvement and is ready to be switched to MedSurg status Day 3 * Continued improvement in both respiratory rate and oxygen requirement. * Still requiring 1 to 2 L nasal cannula * Ferritin increased to 1663, d-dimer decreased to 0.80, LDH 183, C-reactive protein decreased to 6.1, Day 4 * Patient is no longer requiring oxygen. He came off last night and has had saturations from 92 to 98%. * D-dimer, LDH, C-reactive protein, and ferritin all decreased overnight. * He is no longer short of breath and is ready for discharge. - Patient Instructions Diet: Heart Healthy Diet Activity: As Tolerated Driving: Do Not Drive Showering/Bathing: May Shower Other/Special Instructions: Follow up with PCP in 2 weeks. Continue to self isolate based on recommendation of [facility]. - Discharge Plan *PRESCRIPTION DRUG MONITORING PROGRAM REVIEWED*: No *COPY OF PRESCRIPTION DRUG MONITORING REPORT IN PATIENT DELLA: No Home Medications: Home Meds RX: Clopidogrel [Plavix] 75 mg PO DAILY 05/07/16 [History] RX: Diltiazem [Cardizem CD] 240 mg PO BEDTIME 05/07/16 [History] RX: Enalapril Maleate 10 mg PO BID 05/07/16 [History] RX: Multivitamin [Multivitamins] 1 tab PO DAILY 05/07/16 [History] RX: Nitroglycerin [Nitrostat] 0.4 mg SL ASDIRECTED PRN 05/07/16 [History] RX: atorvaSTATin [Lipitor] 80 mg PO DAILY 05/07/16 [History] RX: Isosorbide Mononitrate [Imdur] 30 mg PO BID 06/16/17 [History] RX: Ubidecarenone [Coq-10] 100 mg PO DAILY 06/16/17 [History] RX: Aspirin [Halfprin] 81 mg PO DAILY 10/16/19 [History] RX: Dutasteride 0.5 mg PO DAILY 10/16/19 [History] RX: lamoTRIgine 250 mg PO Q12H 10/16/19 [History] RX: polyethylene glycoL 3350 [MiraLAX] 1 dose PO DAILY PRN 10/16/19 [History] RX: Benzonatate [Tessalon Perle] 200 mg PO TID 02/23/20 [History] RX: Docusate Sodium 100 mg PO ASDIRECTED 02/23/20 [History] RX: levETIRAcetam [Keppra] 500 mg PO BID 02/23/20 [History] Patient Handouts: Sepsis, Diagnosis, Adult, Coronavirus Information 01/29/20 Forms: ED Department Discharge Referrals: Kennedy Zheng MD [Primary Care Provider] - - Discharge Summary/Plan Comment DC Time >30 min.: Yes - General Info Date of Service: 02/27/20 Admission Dx/Problem (Free Text: Respiratory failure secondary to COVID-19 Subjective Update: Patient denies any shortness of breath, fever, chills, but still has a mild cough. He has not required any cough medicines in 2 days. Functional Status: Reports: Pain Controlled - Review of Systems General: Reports: No Symptoms HEENT: Reports: No Symptoms Pulmonary: Reports: Cough. Denies: Shortness of Breath Cardiovascular: Denies: Chest Pain, Palpitations, Dyspnea on Exertion Gastrointestinal: Reports: No Symptoms Musculoskeletal: Reports: No Symptoms - Patient Data Vitals - Most Recent: Last Vital Signs Temp 98.4 F 02/27/20 12:33 Pulse 75 02/27/20 12:33 Resp 16 02/27/20 12:33 BP 124/75 02/27/20 12:33 Pulse Ox 95 02/27/20 12:33 Weight - Most Recent: 193 lb 8 oz I&O - Last 24 hours: Intake & Output 02/26/20 02/27/20 02/27/20 22:59 06:59 14:59 Intake Total 1640 600 Balance 1640 600 Lab Results - Last 24 hrs: Laboratory Results - last 24 hr 02/27/20 02/27/20 02/27/20 Range/Units 05:19 05:19 05:19 WBC (4.23-9.07) K/mm3 RBC (4.63-6.08) M/mm3 Hgb (13.7-17.5) gm/dl Hct (40.1-51.0) % MCV (79.0-92.2) fl MCH (25.7-32.2) pg MCHC (32.2-35.5) g/dl RDW Std Deviation (35.1-43.9) fL Plt Count (163-337) K/mm3 MPV (9.4-12.3) fl Neut % (Auto) (34.0-67.9) % Lymph % (Auto) (21.8-53.1) % Trinity % (Auto) (5.3-12.2) % Eos % (Auto) (0.8-7.0) Baso % (Auto) (0.1-1.2) % Neut # (Auto) (1.78-5.38) K/mm3 Lymph # (Auto) (1.32-3.57) K/mm3 Trinity # (Auto) (0.30-0.82) K/mm3 Eos # (Auto) (0.04-0.54) K/mm3 Baso # (Auto) (0.01-0.08) K/mm3 PT 11.8 (9.7-12.0) SECONDS INR 1.09 D-Dimer, Quantitative 0.67 H (0.19-0.50) mg/L Sodium 143 (136-145) mEq/L Potassium 3.7 (3.5-5.1) mEq/L Chloride 107 (98-107) mEq/L Carbon Dioxide 27 (21-32) mEq/L Anion Gap 12.7 (5-15) BUN 8 (7-18) mg/dL Creatinine 0.7 (0.7-1.3) mg/dL Est Cr Clr Drug Dosing 110.86 mL/min Estimated GFR (MDRD) > 60 (>60) mL/min BUN/Creatinine Ratio 11.4 L (14-18) Glucose 100 (80-115) mg/dL Calcium 9.1 (8.5-10.1) mg/dL Magnesium 2.2 (1.8-2.4) mg/dl Ferritin 1636 H (26-388) ng/ml Total Bilirubin 0.7 (0.2-1.0) mg/dL AST 41 H (15-37) U/L ALT 51 (16-63) U/L Alkaline Phosphatase 77 (46-116) U/L Lactate Dehydrogenase 196 (85-227) U/L C-Reactive Protein 4.9 H* (<1.0) mg/dL Total Protein 6.3 L (6.4-8.2) g/dl Albumin 2.7 L (3.4-5.0) g/dl Globulin 3.6 gm/dL Albumin/Globulin Ratio 0.8 L (1-2) Hepatitis C Antibody (NEGATIVE) HIV-1 Ab Rapid Screen (NEGATIVE) 02/27/20 02/27/20 Range/Units 05:19 05:19 WBC 4.98 (4.23-9.07) K/mm3 RBC 4.22 L (4.63-6.08) M/mm3 Hgb 12.2 L D (13.7-17.5) gm/dl Hct 37.0 L (40.1-51.0) % MCV 87.7 (79.0-92.2) fl MCH 28.9 (25.7-32.2) pg MCHC 33.0 (32.2-35.5) g/dl RDW Std Deviation 40.2 (35.1-43.9) fL Plt Count 324 (163-337) K/mm3 MPV 10.1 (9.4-12.3) fl Neut % (Auto) 66.6 (34.0-67.9) % Lymph % (Auto) 16.7 L (21.8-53.1) % Trinity % (Auto) 13.3 H (5.3-12.2) % Eos % (Auto) 2.2 (0.8-7.0) Baso % (Auto) 0.6 (0.1-1.2) % Neut # (Auto) 3.32 (1.78-5.38) K/mm3 Lymph # (Auto) 0.83 L (1.32-3.57) K/mm3 Trinity # (Auto) 0.66 (0.30-0.82) K/mm3 Eos # (Auto) 0.11 (0.04-0.54) K/mm3 Baso # (Auto) 0.03 (0.01-0.08) K/mm3 PT (9.7-12.0) SECONDS INR D-Dimer, Quantitative (0.19-0.50) mg/L Sodium (136-145) mEq/L Potassium (3.5-5.1) mEq/L Chloride (98-107) mEq/L Carbon Dioxide (21-32) mEq/L Anion Gap (5-15) BUN (7-18) mg/dL Creatinine (0.7-1.3) mg/dL Est Cr Clr Drug Dosing mL/min Estimated GFR (MDRD) (>60) mL/min BUN/Creatinine Ratio (14-18) Glucose (80-115) mg/dL Calcium (8.5-10.1) mg/dL Magnesium (1.8-2.4) mg/dl Ferritin (26-388) ng/ml Total Bilirubin (0.2-1.0) mg/dL AST (15-37) U/L ALT (16-63) U/L Alkaline Phosphatase (46-116) U/L Lactate Dehydrogenase (85-227) U/L C-Reactive Protein (<1.0) mg/dL Total Protein (6.4-8.2) g/dl Albumin (3.4-5.0) g/dl Globulin gm/dL Albumin/Globulin Ratio (1-2) Hepatitis C Antibody Negative (NEGATIVE) HIV-1 Ab Rapid Screen Negative (NEGATIVE) DARION Results - Last 24 hrs: Microbiology 02/26/20 13:25 Gram Stain - Final Sputum - Expectorated Sputum Culture - Final Med Orders - Current: Current Medications Acetaminophen (Tylenol) 650 mg PO Q4H PRN PRN Reason: Pain (Mild 1-3)/fever Last Admin: 02/23/20 22:43 Dose: 650 mg Aspirin (Halfprin) 81 mg PO DAILY [facility] Last Admin: 02/27/20 09:47 Dose: 81 mg Benzonatate (Tessalon Perles) 200 mg PO TID [facility] Last Admin: 02/27/20 09:46 Dose: 200 mg Clopidogrel Bisulfate (Plavix) 75 mg PO Q48H [facility] Last Admin: 02/27/20 09:47 Dose: 75 mg Diltiazem HCl (Dilacor Xr) 240 mg PO BEDTIME [facility] Last Admin: 02/26/20 20:34 Dose: 240 mg Docusate Sodium (Colace) 100 mg PO BID [facility] Last Admin: 02/27/20 09:46 Dose: 100 mg Enalapril Maleate (Vasotec) 10 mg PO BID [facility] Last Admin: 02/27/20 09:47 Dose: 10 mg Enoxaparin Sodium (Lovenox) 40 mg SUBCUT DAILY [facility] Last Admin: 02/27/20 09:45 Dose: 40 mg Finasteride (Proscar) 5 mg PO DAILY [facility] Last Admin: 02/27/20 09:47 Dose: 5 mg Isosorbide Mononitrate (Imdur) 30 mg PO BID [facility] Last Admin: 02/27/20 09:47 Dose: 30 mg Lamotrigine (Lamotrigine) 250 mg PO Q12H [facility] Last Admin: 02/27/20 09:46 Dose: 250 mg Levetiracetam (Keppra) 500 mg PO BID [facility] Last Admin: 02/27/20 09:47 Dose: 500 mg Nitroglycerin (Nitrostat) 0.4 mg SL ASDIRECTED PRN PRN Reason: Chest Pain Polyethylene Glycol (Miralax) 17 gm PO DAILY PRN PRN Reason: Constipation Promethazine HCl/Codeine (Phenergan With Codeine) 5 ml PO Q4H PRN PRN Reason: Cough Last Admin: 02/25/20 20:31 Dose: 5 ml Rosuvastatin Calcium (Crestor) 20 mg PO DAILY [facility] Last Admin: 02/27/20 09:46 Dose: 20 mg Sodium Chloride (Saline Flush) 10 ml FLUSH ASDIRECTED PRN PRN Reason: Keep Vein Open Last Admin: 02/23/20 10:41 Dose: 10 ml Discontinued Medications Azithromycin (Zithromax) 250 mg PO 1700 [facility] Stop: 02/26/20 17:01 Last Admin: 02/26/20 16:19 Dose: 250 mg Hydroxychloroquine Sulfate (Plaquenil) 400 mg PO ONETIME ONE Stop: 02/23/20 13:04 Last Admin: 02/23/20 14:08 Dose: 400 mg Hydroxychloroquine Sulfate (Plaquenil) 400 mg PO Q24H [facility] Stop: 02/27/20 12:01 Last Admin: 02/27/20 12:12 Dose: 400 mg Hydroxychloroquine Sulfate (Plaquenil) 400 mg PO ONETIME ONE Stop: 02/23/20 21:01 Last Admin: 02/23/20 20:06 Dose: 400 mg Azithromycin 250 mg/ Sodium (Chloride) 250 mls @ 250 mls/hr IV Q24H [facility] Stop: 02/26/20 17:01 Last Admin: 02/25/20 17:47 Dose: Not Given Promethazine HCl/Codeine (Phenergan With Codeine) 5 ml PO ONETIME ONE Stop: 02/23/20 10:06 Last Admin: 02/23/20 10:18 Dose: 5 ml Promethazine HCl/Codeine (Phenergan With Codeine) 5 ml PO ONETIME ONE Stop: 02/23/20 14:17 Last Admin: 02/23/20 14:30 Dose: 5 ml - Exam Quality Assessment: Denies: Supplemental Oxygen General: Reports: Alert, Oriented HEENT: Reports: Pupils Equal, Mucous Membr. Moist/[place] Neck: Reports: Supple Lungs: Reports: Normal Respiratory Effort, Crackles (Scattered) Cardiovascular: Reports: Regular Rate, Regular Rhythm GI/Abdominal Exam: Normal Bowel Sounds, Soft, Non-Tender, No Distention Extremities: Normal Inspection, Normal Range of Motion, Non-Tender, No Pedal Edema, Normal Capillary Refill Psy/Mental Status: Reports: Alert, Normal Affect, Normal Mood
== END 2020-02-27 13:54 | disposition home or self-care (01) | DRG 177 ==
LOC: JD.ED 09:27 → UNDOADMIN 14:27 → JD.ICU 14:27 → UNDODISIN 02-27 13:56
PROVIDERS: ADMIT Family Medicine; ATTEND Family Medicine
PROC: 8E0ZXY6 Isolation (ICD-10-PCS; principal; 2020-02-23)
DX: U07.1 COVID-19 (principal); J98.8 Other specified respiratory disorders; R09.02 Hypoxemia; J12.89 Other viral pneumonia; J96.91 Respiratory failure, unspecified with hypoxia; Z20.828 Contact with and (suspected) exposure to other viral communicable diseases; I10 Essential (primary) hypertension; E78.5 Hyperlipidemia, unspecified; E03.9 Hypothyroidism, unspecified; F41.9 Anxiety disorder, unspecified; G40.909 Epilepsy, unspecified, not intractable, without status epilepticus; H91.90 Unspecified hearing loss, unspecified ear; H54.7 Unspecified visual loss; I25.10 Atherosclerotic heart disease of native coronary artery without angina pectoris; E78.00 Pure hypercholesterolemia, unspecified; K21.9 Gastro-esophageal reflux disease without esophagitis; G89.29 Other chronic pain; M81.0 Age-related osteoporosis without current pathological fracture; Z90.49 Acquired absence of other specified parts of digestive tract; Z79.82 Long term (current) use of aspirin; Z95.1 Presence of aortocoronary bypass graft; Z79.02 Long term (current) use of antithrombotics/antiplatelets; I25.2 Old myocardial infarction; Z79.899 Other long term (current) drug therapy; Z88.8 Allergy status to other drugs, medicaments and biological substances
CPT/HCPCS: 36415; 71045; 80053; 82728; 83615; 83880; 84145; 84484; 85025; 86140; 93005; 99285; A9270 ×2; 83735; 85379; 85610; 86803; 87205; 87340; 99223; 99232; 99239; 99284; G0433; J0456; J1650; J7050

== ENCOUNTER 2021-09-28 16:56 | Emergency (ER) | payer MEDICARE, OTHER ==
[2021-09-28 17:36] VITALS: BP 219/177; PULSE 90
--- NOTE | 2021-09-28 18:56 | EDM.PDOC ---
ED HPI GENERAL MEDICAL PROBLEM - General Chief Complaint: ENT Problem Stated Complaint: TONGUE BLEEDING Time Seen by Provider: 09/28/21 18:40 Source of Information: Reports: Patient, Family () History Limitations: Reports: No Limitations - History of Present Illness INITIAL COMMENTS - FREE TEXT/NARRATIVE: Mr. Foss is a pleasant 71-year-old gentleman who now presents the ED for bleeding from his tongue after he accidentally bit it while eating a Tootsie Roll around 14:00 this afternoon. The patient is on Plavix. Other than applying gauze to the tongue once he got to the ED, no treatment has been applied. Here in the ED, the patient's initial BP was found to be elevated at 219/177. He is afebrile, saturating 97% on room air. He appears to be comfortable, in no acute distress. Other than his tongue issue, the patient denies having a recent fever, chills, sore throat, ear pain, nasal or sinus congestion, cough, dyspnea, chest pain, palpitations, nausea, vomiting, constipation, diarrhea, abdominal pain, urinary symptoms, recent weight gain or weight loss, recent bloody bowel movements or black bowel movements, recent joint aches, headaches, or rashes. I reviewed the PMHx/PSHx/SocHx, which was reviewed with the patient by the RN. The patient's PCP is Dr. Kennedy Zheng. His Electronic Assembly is Dr. Farzad Pederson. His Cardiac Surgeon is Dr. Ranjan Cortez. His Neurologist is Dr. Kwan Durbin. He has not received a COVID vaccination, nor an influenza vaccination this season. Oral/Mouth Pain Score (Numeric/FACES): 5 - Related Data Allergies Allergy/AdvReac Type Severity Reaction Status Date / Time Alpha 2 Adrenergic Agonist AdvReac Dizziness Verified 09/28/21 17:37 beta blockers AdvReac Syncope Uncoded 02/23/20 09:38 Home Meds: Home Meds Clopidogrel [Plavix] 75 mg PO DAILY 05/07/16 [History] Diltiazem [Cardizem CD] 240 mg PO BEDTIME 05/07/16 [History] Enalapril Maleate 10 mg PO BID 05/07/16 [History] Multivitamin [Multivitamins] 1 tab PO DAILY 05/07/16 [History] Nitroglycerin [Nitrostat] 0.4 mg SL ASDIRECTED PRN 05/07/16 [History] atorvaSTATin [Lipitor] 80 mg PO DAILY 05/07/16 [History] Isosorbide Mononitrate [Imdur] 30 mg PO BID 06/16/17 [History] Ubidecarenone [Coq-10] 100 mg PO DAILY 06/16/17 [History] Aspirin [Halfprin] 81 mg PO DAILY 10/16/19 [History] Dutasteride 0.5 mg PO DAILY 10/16/19 [History] lamoTRIgine 250 mg PO Q12H 10/16/19 [History] polyethylene glycoL 3350 [MiraLAX] 1 dose PO DAILY PRN 10/16/19 [History] Benzonatate [Tessalon Perle] 200 mg PO TID 02/23/20 [History] Docusate Sodium 100 mg PO ASDIRECTED 02/23/20 [History] levETIRAcetam [Keppra] 500 mg PO BID 02/23/20 [History] Past Medical History HEENT History: Reports: Allergic Rhinitis, Hard of Hearing, Impaired Vision Other HEENT History: wears glasses Cardiovascular History: Reports: Bypass, CAD, High Cholesterol, Hypertension, MA, Other (See Below) Other Cardiovascular History: bypass x3 March 2009, carotid atherosclerosis, zach na, chest pain Respiratory History: Reports: SOB Gastrointestinal History: Reports: Cholelithiasis, GERD, Other (See Below) Other Gastrointestinal History: gastritis, duodenitis, abdominal pain Genitourinary History: Reports: None [employer]ORAT[employer] SPECIALIST History: Reports: None Musculoskeletal History: Reports: Other (See Below) Other Musculoskeletal History: chronic joint pain Neurological History: Reports: Seizure, Other (See Below) Other Neuro History: epilepsy, black out episodes from [id number] diagnosed as petit mal seizures Psychiatric History: Reports: Anxiety Endocrine/Metabolic History: Reports: Hypothyroidism, Osteoporosis Hematologic History: Reports: None, Other (See Below) Other Hematologic History: jaundice history-resolved Immunologic History: Reports: None Oncologic (Cancer) History: Reports: None Dermatologic History: Reports: Other (See Below) Other Dermatologic History: cyst on face - Infectious Disease History Infectious Disease History: Reports: Novel Coronavirus (dx'd around 02/20/2020) - Past Surgical History Head Surgeries/Procedures: Reports: None HEENT Surgical History: Reports: None Cardiovascular Surgical History: Reports: Coronary Artery Bypass Other Cardiovascular Surgeries/Procedures: triple CABG in 2009 Respiratory Surgical History: Reports: None GI Surgical History: Reports: None, Cholecystectomy, Colonoscopy Male Surgical History: Reports: None Endocrine Surgical History: Reports: None Neurological Surgical History: Reports: None Musculoskeletal Surgical History: Reports: None Oncologic Surgical History: Reports: None Dermatological Surgical History: Reports: None Social & Family History - Family History Family Medical History: No Pertinent Family History - Tobacco Use Tobacco Use Status *Q: Never Tobacco User Second Hand Smoke Exposure: No - Caffeine Use Caffeine Use: Reports: Coffee - Recreational Drug Use Recreational Drug Use: No - Living Situation & Occupation Living situation: Reports: Occupation: Employed ED ROS ENT - Review of Systems Review Of Systems: Comprehensive ROS is negative, except as noted in HPI. ED EXAM, ENT - Physical Exam Exam: See Below Exam Limited By: No Limitations General Appearance: Alert, WD/WN, No Apparent Distress Eye Exam: Bilateral Eye: EOMI, Normal Inspection Ears: Normal External Exam, Hearing Grossly Normal Nose: Normal Inspection Mouth/Throat: Normal Gums, Normal Lips, Normal Teeth, Other (Approximately 1 cm x 0.5 cm ecchymosis to the right dorsal aspect of the tongue, perhaps 1.5 cm from the distal tip. The wound is not bleeding. Even with spreading the tongue, no laceration or puncture is seen. The ventral aspect of the tongue is completely normal in appearance.) Head: Atraumatic, Normocephalic Course - Vital Signs Last Recorded V/S: Last Vital Signs Temp 36.7 C 09/28/21 17:35 Pulse 90 09/28/21 17:35 Resp 20 09/28/21 17:35 BP 219/177 H 09/28/21 17:35 Pulse Ox 97 09/28/21 17:35 - Re-Assessments/Exams Free Text/Narrative Re-Assessment/Exam: 09/28/21 18:50 There is a small ecchymosis to the right dorsal aspect of the tongue, but I do not see a laceration, and the tongue is not currently bleeding. The ventral aspect of the tongue is completely normal. The patient likely suffered a pinhole laceration to the dorsal aspect of his tongue which bled excessively due to his being on Plavix, but has now stopped. No further treatment is necessary. I suggested to the patient that if it starts bleeding again, that he can either pinch his tongue with some gauze, or, better yet, suck on an ice cube, and press it against the roof of his mouth. Departure - Departure Time of Disposition: 18:52 Disposition: Home, Self-Care 01 Condition: Good Clinical Impression: Puncture wound of tongue - Discharge Information *PRESCRIPTION DRUG MONITORING PROGRAM REVIEWED*: Not Applicable *COPY OF PRESCRIPTION DRUG MONITORING REPORT IN PATIENT DELLA: Not Applicable Referrals: Kennedy Zheng MD [Primary Care Provider] - Farzad Pederson MD [Ordering Only Provider] - Kwan Durbin MD [Ordering Only Provider] - Ranjan Cortez MD [Ordering Only Provider] - Forms: ED Department Discharge Additional Instructions: You were seen in the emergency room after biting your tongue this afternoon, causing it to bleed excessively due to being on Plavix. When seen in the ER, the bleeding had stopped, and there was no visible laceration. Based on your history and physical examination, you likely suffered a small pinhole puncture of your tongue, which stopped bleeding on its own. No further medical treatment is necessary. If your tongue starts bleeding again, you can either pinch it tightly with some gauze, or try pressing an ice cube between your tongue and the roof of your mouth. If any other problems, please do not hesitate to return to the ER. Sepsis Event Note (ED) - Focused Exam Vital Signs: Vital Signs Temp Pulse Resp BP Pulse Ox 09/28/21 17:35 36.7 C 90 20 219/177 H 97
== END 2021-09-28 19:21 | disposition home or self-care (01) ==
LOC: JD.ED 16:56
DX: S01.532A Puncture wound without foreign body of oral cavity, initial encounter (principal); I25.810 Atherosclerosis of coronary artery bypass graft(s) without angina pectoris; E78.00 Pure hypercholesterolemia, unspecified; I10 Essential (primary) hypertension; I25.2 Old myocardial infarction; G40.909 Epilepsy, unspecified, not intractable, without status epilepticus; Z86.16 Personal history of COVID-19; Z88.8 Allergy status to other drugs, medicaments and biological substances; Z79.02 Long term (current) use of antithrombotics/antiplatelets; Z79.82 Long term (current) use of aspirin; Z79.899 Other long term (current) drug therapy; X58.XXXA Exposure to other specified factors, initial encounter
CPT/HCPCS: 99282; 99283

== ENCOUNTER 2024-09-05 11:09 | Emergency (ER) | payer MEDICARE, OTHER ==
[2024-09-05 16:00] VITALS: BP 147/82; PULSE 68
== END 2024-09-05 14:43 | disposition home or self-care (01) ==
LOC: JD.ED 11:09
DX: S68.117A Complete traumatic metacarpophalangeal amputation of left little finger, initial encounter (principal); I25.10 Atherosclerotic heart disease of native coronary artery without angina pectoris; I25.2 Old myocardial infarction; I10 Essential (primary) hypertension; E78.00 Pure hypercholesterolemia, unspecified; E03.9 Hypothyroidism, unspecified; Z90.49 Acquired absence of other specified parts of digestive tract; Z86.16 Personal history of COVID-19; Z88.8 Allergy status to other drugs, medicaments and biological substances; Z79.82 Long term (current) use of aspirin; Z79.02 Long term (current) use of antithrombotics/antiplatelets; Z79.899 Other long term (current) drug therapy; W31.2XXA Contact with powered woodworking and forming machines, initial encounter
CPT/HCPCS: 73140-26-F4; 73140-F4; 99283